=== PATIENT | male | born 1985 | race Caucasian/White ===

== ENCOUNTER 2016-11-01 21:16 | Emergency (ER) | payer OTHER ==
[2016-11-01] MEDS ORDERED: NS 0.9% 1000 ML* 1,000 ML IV ONE (21:28)
[2016-11-01] MEDS ORDERED: LORazepam INJ* 2 MG/ML 1 ML VIAL IV PUSH ONE ×2 (21:38→22:04)
[2016-11-01] MEDS ORDERED: LORazepam INJ* 2 MG/ML 1 ML VIAL ONE (21:40)
[2016-11-01 22:11] LABS: Hematocrit 44 % (42-52); Mean Corpuscular HGB Conc 34 g/dl (31-36); Mean Corpuscular Hemoglobin 30 pg (27-31); Mean Corpuscular Volume 87 fL (80-94); Mean Platelet Volume 9 um3 (7.4-10.4); Red Blood Count 5.06 10^6/ul (4.0-5.4); Red Cell Distribution Width 14 % (10.5-15); White Blood Count 11.2 10^3/ul (3.5-10.8)
[2016-11-01 22:26] LABS: Albumin 4.4 g/dL (3.2-5.2); BUN/Creatinine Ratio 22.4 (8-20); Calcium 9.7 mg/dL (8.6-10.3); EGFR African American 136.1 (>60); EGFR Non-African American 105.8 (>60); Globulin 2.8 g/dL (2-4); Magnesium 1.8 mg/dL (1.9-2.7); Potassium 3.6 mmol/L (3.5-5.0); Total Bilirubin 0.4 mg/dL (0.2-1.0); Total Protein 7.2 g/dL (6.4-8.9)
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
[2016-11-02 00:15] VITALS: BP 131/76
[2016-11-03 12:44] LABS: Lamotrigine <0.2 mcg/mL (2.5 - 15.0)
[2016-11-03 13:01] LABS: Levetiracetam <2.0 mcg/mL
== END 2016-11-02 00:10 | disposition home or self-care (01) ==
LOC: ED 21:16
DX: R56.9 Unspecified convulsions (principal); S01.81XA Laceration without foreign body of other part of head, initial encounter; R68.84 Jaw pain; W19.XXXA Unspecified fall, initial encounter; Y93.9 Activity, unspecified; Y92.9 Unspecified place or not applicable
CPT/HCPCS: 36415; 80053; 80175; 80177; 83735; 85025; 85610; 96374; 96376; 99284; J2060

== ENCOUNTER 2016-11-06 12:48 | Emergency (ER) | payer OTHER ==
[2016-11-06 12:54] VITALS: BP 138/82
[2016-11-06] MEDS ORDERED: oxyCODONE TAB* 5 MG TAB PO ONE (13:13)
[2016-11-06] MEDS ORDERED: HYDROcodone/ACETAMIN 5-325 MG* 1 TAB PO ONE (13:19)
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
== END 2016-11-06 14:30 | disposition home or self-care (01) ==
LOC: UCEAST 12:48
DX: S01.81XD Laceration without foreign body of other part of head, subsequent encounter (principal); X58.XXXD Exposure to other specified factors, subsequent encounter
CPT/HCPCS: 99212; A9270-GY; G0463

== ENCOUNTER 2016-12-11 12:55 | Emergency (ER) | payer OTHER ==
[2016-12-11 14:52] LABS: Hematocrit 48 % (42-52); Hemoglobin 16.5 g/dl (14.0-18.0); Mean Corpuscular HGB Conc 34 g/dl (31-36); Mean Corpuscular Hemoglobin 30 pg (27-31); Mean Corpuscular Volume 88 fL (80-94); Mean Platelet Volume 9 um3 (7.4-10.4); Red Blood Count 5.45 10^6/ul (4.0-5.4); Red Cell Distribution Width 13 % (10.5-15); White Blood Count 8.1 10^3/ul (3.5-10.8)
[2016-12-11 15:08] LABS: ALT 29 U/L (7-52); Albumin 4.8 g/dL (3.2-5.2); Alkaline Phosphatase 43 U/L (34-104); BUN/Creatinine Ratio 19.1 (8-20); Blood Urea Nitrogen 18 mg/dL (6-24); CO2 Carbon Dioxide 28 mmol/L (22-32); Calcium 10.3 mg/dL (8.6-10.3); Chloride 97 mmol/L (101-111); EGFR African American 121.2 (>60); EGFR Non-African American 94.2 (>60); Globulin 3.4 g/dL (2-4); Glucose 100 mg/dL (70-100); Sodium 134 mmol/L (133-145); Total Protein 8.2 g/dL (6.4-8.9)
[2016-12-11 15:11] LABS: Anion Gap 9 mmol/L (2-11)
[2016-12-11] MEDS ORDERED: NS 0.9% 1000 ML* 1,000 ML IV ONE (15:38)
[2016-12-11 15:48] LABS: Magnesium 1.9 mg/dL (1.9-2.7)
[2016-12-11 17:03] LABS: Benzodiazepine Urine Screen Presumptive Positive (None Detect)
[2016-12-11 17:05] LABS: Urine Bacteria Absent (Absent); Urine Bilirubin Negative (Negative); Urine Glucose Negative (Negative); Urine Nitrite Negative (Negative)
[2016-12-11 17:29] VITALS: BP 125/78
--- NOTE | 2016-12-11 21:15 | ED ---
Katelyn Vega Edward, scribed for Shay Mcdonald MD on 12/11/16 at 1439 . Neurological HPI - HPI Summary HPI Summary: 31 y/o male prsents to ED s/p seizure earlier today. Seizure was witnessed - witness states the patient stared off into space, his L hand stiffened up, and then almost fell forward. The patient does not remember the seizure but remembers coming out of it. Associated sx: weakness. PMHx seizures. - History of Current Complaint Chief Complaint: EDSeizure Stated Complaint: VOMITING, Time Seen by Provider: 12/11/16 14:31 Hx Obtained From: Patient Onset/Duration: Sudden Onset Number of Seizures: 1 Pain Intensity: 0 Pain Scale Used: 0-10 Numeric Character: Other: - Seizure - staring off into space, hand stiffened up Seizure Character: Generalized Associated Signs and Symptoms: Positive: Weakness, Seizure - Allergy/Home Medications Allergies/Adverse Reactions: Allergies Allergy/AdvReac Type Severity Reaction Status Date / Time Peanut-containing Drug Allergy Severe Swelling Verified 11/14/16 18:26 Products Peanut Oil Allergy Hives/Diff. Verified 11/06/16 12:54 Breathing/I tching NSAIDs AdvReac Bleeding Verified 11/06/16 12:54 INSENSE Allergy Severe GI Upset Uncoded 11/14/16 18:26 PMH/Surg Hx/FS Hx/Imm Hx Previously Healthy: No Endocrine/Hematology History: Denies: Hx Anticoagulant Therapy, Hx Diabetes, Hx Systemic Lupus Erythematosus, Hx Thyroid Disease, Other Endocrine/Hematological Disorders Cardiovascular History: Denies: Hx Congestive Heart Failure, Hx Deep Vein Thrombosis, Hx Hypertension , Hx Myocardial Infarction, Hx Pacemaker/ICD, Hx Peripheral Vascular Disease, Other Cardiovascular Problems/Disorders Respiratory History: Denies: Hx Asthma, Hx Chronic Obstructive Pulmonary Disease (COPD), Hx Lung Cancer, Other Respiratory Problems/Disorders GI History: Reports: Hx Gastroesophageal Reflux Disease, Hx Gastrointestinal Bleed Denies: Hx Gall Bladder Disease, Hx Ulcer, Hx Urosepsis, Other GI Disorders History: Denies: Hx Kidney Stones, Hx Renal Disease, Other Problems/Disorders Musculoskeletal History: Reports: Hx Back Problems - Fell off a ladder Denies: Hx Arthritis, Hx Osteoporosis, Other Musculoskeletal History Sensory History: Reports: Hx Contacts or Glasses Denies: Hx Cataracts, Hx Glaucoma, Hx Hearing Aid, Other Sensory Impairments Opthamlomology History: Reports: Hx Contacts or Glasses Denies: Hx Cataracts, Hx Glaucoma, Other Sensory Impairments Neurological History: Reports: Hx Headaches, Hx Seizures, Other Neuro Impairments/Disorders - History of head injury. 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 Denies: Hx Dementia Psychiatric History: Reports: Hx Anxiety, Hx Depression, Hx Community Mental Health Tx, Hx of Violent Episodes Against Others Denies: Hx Eating Disorder, Hx Panic Disorder, Hx Inpatient Treatment, Hx Schizophrenia, Hx Bipolar Disorder, Hx Suicide Attempt, Hx Substance Abuse, Other Psychiatric Issues/Disorders - Cancer History Hx Hematologic Symptoms: No Hx Chemotherapy: No - Surgical History Surgery Procedure, Year, and Place: [facility], [facility], [place] Hx Anesthesia Reactions: No - Immunization History Date of Tetanus Vaccine: UP TO DATE Date of Influenza Vaccine: 2012 Infectious Disease History: Yes Infectious Disease History: Denies: Hx Clostridium Difficile, Hx Hepatitis, Hx Human Immunodeficiency Virus (HIV), Hx of Known/Suspected MRSA, Hx Shingles, Hx Tuberculosis, Hx Known/ Suspected VRE, Hx Known/Suspected VRSA, History Other Infectious Disease, Traveled Outside the [place] in Last 30 Days - Family History Known Family History: Positive: Seizure Disorder - Son with febrile sz, brother from sz, Other - brother drowned with a seizure disorder Negative: Cardiac Disease, Hypertension, Diabetes Family History: Depression - Social History Alcohol Use: None Alcohol Amount: 3 months ago quit alcohol Hx Substance Use: No Substance Use Type: Reports: None Substance Use Comment - Amount & Last Used: history at [place]- Tobacco Use: Yes Smoking Status (MU): Current Some Day Smoker Type: Cigarettes, eCigarettes Amount Used/How Often: 2-3cig/day Length of Time of Smoking/Using Tobacco: "A COUPLE YRS" Have You Smoked in the Last Year: Yes Review of Systems Constitutional: Negative Eyes: Negative ENT: Negative Cardiovascular: Negative Respiratory: Negative Gastrointestinal: Negative Genitourinary: Negative Musculoskeletal: Negative Skin: Negative Neurological: Other - Seizure - stared off into space, hand stiffened up, pt almost fell forward, per witness Positive: Weakness Psychological: Normal All Other Systems Reviewed And Are Negative: Yes Physical Exam Triage Information Reviewed: Yes Vital Signs On Initial Exam: Initial Vitals Temp Pulse Resp BP Pulse Ox 98.8 F 131 22 122/84 99 12/11/16 13:34 12/11/16 13:34 12/11/16 13:34 12/11/16 13:34 12/11/16 13:34 Vital Signs Reviewed: Yes Appearance: Positive: Well-Appearing, No Pain Distress Skin: Positive: Warm, Skin Color Reflects Adequate Perfusion, Dry Head/Face: Positive: Normal Head/Face Inspection Eyes: Positive: Normal ENT: Positive: Normal ENT inspection Neck: Positive: Supple, Nontender Respiratory/Lung Sounds: Positive: Clear to Auscultation, Breath Sounds Present Cardiovascular: Positive: RRR Abdomen Description: Positive: Nontender, Soft Bowel Sounds: Positive: Present Musculoskeletal: Positive: Normal Neurological: Positive: Normal Psychiatric: Positive: Normal, Affect/Mood Appropriate - [place] Coma Scale Coma Scale Total: 15 Diagnostics - Vital Signs Vital Signs Temp Pulse Resp BP Pulse Ox 12/11/16 13:41 97.1 F 121 25 122/84 96 12/11/16 13:34 98.8 F 131 22 122/84 99 - Laboratory Lab Results: Lab Results 12/11/16 12/11/16 12/11/16 Range/Units 14:40 14:40 14:40 WBC 8.1 (3.5-10.8) 10^3/ul RBC 5.45 H (4.0-5.4) 10^6/ul Hgb 16.5 (14.0-18.0) g/dl Hct 48 (42-52) % MCV 88 (80-94) fL MCH 30 (27-31) pg MCHC 34 (31-36) g/dl RDW 13 (10.5-15) % Plt Count 226 (150-450) 10^3/ul MPV 9 (7.4-10.4) um3 Neut % (Auto) 80.5 (38-83) % Lymph % (Auto) 10.7 L (25-47) % Todd % (Auto) 8.3 (1-9) % Eos % (Auto) 0.1 (0-6) % Baso % (Auto) 0.4 (0-2) % Absolute Neuts (auto) 6.5 (1.5-7.7) 10^3/ul Absolute Lymphs (auto) 0.9 L (1.0-4.8) 10^3/ul Absolute Monos (auto) 0.7 (0-0.8) 10^3/ul Absolute Eos (auto) 0 (0-0.6) 10^3/ul Absolute Basos (auto) 0 (0-0.2) 10^3/ul Absolute Nucleated RBC 0.04 10^3/ul Nucleated RBC % 0.4 INR (Anticoag Therapy) 1.06 (0.89-1.11) Sodium 134 (133-145) mmol/L Potassium TNP Chloride 97 L (101-111) mmol/L Carbon Dioxide 28 (22-32) mmol/L Anion Gap 9 (2-11) mmol/L BUN 18 (6-24) mg/dL Creatinine 0.94 (0.67-1.17) mg/dL Est GFR ( Amer) 121.2 (>60) Est GFR (Non-Af Amer) 94.2 (>60) BUN/Creatinine Ratio 19.1 (8-20) Glucose 100 (70-100) mg/dL Lactic Acid (0.5-2.0) mmol/L Calcium 10.3 (8.6-10.3) mg/dL Magnesium TNP Total Bilirubin 0.70 (0.2-1.0) mg/dL AST TNP ALT 29 (7-52) U/L Alkaline Phosphatase 43 (34-104) U/L Total Protein 8.2 (6.4-8.9) g/dL Albumin 4.8 (3.2-5.2) g/dL Globulin 3.4 (2-4) g/dL Albumin/Globulin Ratio 1.4 (1-3) Urine Color Urine Appearance Urine pH (5-9) Ur Specific [place] (1.010-1.030) Urine Protein (Negative) Urine Ketones (Negative) Urine Blood (Negative) Urine Nitrate (Negative) Urine Bilirubin (Negative) Urine Urobilinogen (Negative) Ur Leukocyte Esterase (Negative) Urine WBC (Auto) (Absent) Urine RBC (Auto) (Absent) Urine Bacteria (Absent) Hyaline Casts (Absent) Urine Glucose (Negative) Urine Opiates Screen (None Detect) Ur Barbiturates Screen (None Detect) Ur Phencyclidine Scrn (None Detect) Ur Amphetamines Screen (None Detect) U Benzodiazepines Scrn (None Detect) Urine Cocaine Screen (None Detect) U Cannabinoids Screen (None Detect) 07/18/17 07/18/17 07/18/17 Range/Units 14:40 15:29 16:35 WBC (3.5-10.8) 10^3/ul RBC (4.0-5.4) 10^6/ul Hgb (14.0-18.0) g/dl Hct (42-52) % MCV (80-94) fL MCH (27-31) pg MCHC (31-36) g/dl RDW (10.5-15) % Plt Count (150-450) 10^3/ul MPV (7.4-10.4) um3 Neut % (Auto) (38-83) % Lymph % (Auto) (25-47) % Todd % (Auto) (1-9) % Eos % (Auto) (0-6) % Baso % (Auto) (0-2) % Absolute Neuts (auto) (1.5-7.7) 10^3/ul Absolute Lymphs (auto) (1.0-4.8) 10^3/ul Absolute Monos (auto) (0-0.8) 10^3/ul Absolute Eos (auto) (0-0.6) 10^3/ul Absolute Basos (auto) (0-0.2) 10^3/ul Absolute Nucleated RBC 10^3/ul Nucleated RBC % INR (Anticoag Therapy) (0.89-1.11) Sodium (133-145) mmol/L Potassium 3.6 Chloride (101-111) mmol/L Carbon Dioxide (22-32) mmol/L Anion Gap (2-11) mmol/L BUN (6-24) mg/dL Creatinine (0.67-1.17) mg/dL Est GFR ( Amer) (>60) Est GFR (Non-Af Amer) (>60) BUN/Creatinine Ratio (8-20) Glucose (70-100) mg/dL Lactic Acid 1.1 (0.5-2.0) mmol/L Calcium (8.6-10.3) mg/dL Magnesium 1.9 Total Bilirubin (0.2-1.0) mg/dL AST 25 ALT (7-52) U/L Alkaline Phosphatase (34-104) U/L Total Protein (6.4-8.9) g/dL Albumin (3.2-5.2) g/dL Globulin (2-4) g/dL Albumin/Globulin Ratio (1-3) Urine Color [place] Urine Appearance Cloudy Urine pH 7.0 (5-9) Ur Specific [place] 1.033 H (1.010-1.030) Urine Protein 2+(100 mg/dl) H (Negative) Urine Ketones 1+ H (Negative) Urine Blood Negative (Negative) Urine Nitrate Negative (Negative) Urine Bilirubin Negative (Negative) Urine Urobilinogen Negative (Negative) Ur Leukocyte Esterase Trace H (Negative) Urine WBC (Auto) Trace(0-5/hpf) (Absent) Urine RBC (Auto) 2+(6-10/hpf) H (Absent) Urine Bacteria Absent (Absent) Hyaline Casts Present H (Absent) Urine Glucose Negative (Negative) Urine Opiates Screen (None Detect) Ur Barbiturates Screen (None Detect) Ur Phencyclidine Scrn (None Detect) Ur Amphetamines Screen (None Detect) U Benzodiazepines Scrn (None Detect) Urine Cocaine Screen (None Detect) U Cannabinoids Screen (None Detect) 12/11/16 Range/Units 16:35 WBC (3.5-10.8) 10^3/ul RBC (4.0-5.4) 10^6/ul Hgb (14.0-18.0) g/dl Hct (42-52) % MCV (80-94) fL MCH (27-31) pg MCHC (31-36) g/dl RDW (10.5-15) % Plt Count (150-450) 10^3/ul MPV (7.4-10.4) um3 Neut % (Auto) (38-83) % Lymph % (Auto) (25-47) % Todd % (Auto) (1-9) % Eos % (Auto) (0-6) % Baso % (Auto) (0-2) % Absolute Neuts (auto) (1.5-7.7) 10^3/ul Absolute Lymphs (auto) (1.0-4.8) 10^3/ul Absolute Monos (auto) (0-0.8) 10^3/ul Absolute Eos (auto) (0-0.6) 10^3/ul Absolute Basos (auto) (0-0.2) 10^3/ul Absolute Nucleated RBC 10^3/ul Nucleated RBC % INR (Anticoag Therapy) (0.89-1.11) Sodium (133-145) mmol/L Potassium Chloride (101-111) mmol/L Carbon Dioxide (22-32) mmol/L Anion Gap (2-11) mmol/L BUN (6-24) mg/dL Creatinine (0.67-1.17) mg/dL Est GFR ( Amer) (>60) Est GFR (Non-Af Amer) (>60) BUN/Creatinine Ratio (8-20) Glucose (70-100) mg/dL Lactic Acid (0.5-2.0) mmol/L Calcium (8.6-10.3) mg/dL Magnesium Total Bilirubin (0.2-1.0) mg/dL AST ALT (7-52) U/L Alkaline Phosphatase (34-104) U/L Total Protein (6.4-8.9) g/dL Albumin (3.2-5.2) g/dL Globulin (2-4) g/dL Albumin/Globulin Ratio (1-3) Urine Color Urine Appearance Urine pH (5-9) Ur Specific [place] (1.010-1.030) Urine Protein (Negative) Urine Ketones (Negative) Urine Blood (Negative) Urine Nitrate (Negative) Urine Bilirubin (Negative) Urine Urobilinogen (Negative) Ur Leukocyte Esterase (Negative) Urine WBC (Auto) (Absent) Urine RBC (Auto) (Absent) Urine Bacteria (Absent) Hyaline Casts (Absent) Urine Glucose (Negative) Urine Opiates Screen Presumptive positive H (None Detect) Ur Barbiturates Screen None detected (None Detect) Ur Phencyclidine Scrn None detected (None Detect) Ur Amphetamines Screen None detected (None Detect) U Benzodiazepines Scrn Presumptive positive H (None Detect) Urine Cocaine Screen None detected (None Detect) U Cannabinoids Screen None detected (None Detect) Result Diagrams: 12/11/16 14:40 12/11/16 15:29 Lab Statement: Any lab studies that have been ordered have been reviewed, and results considered in the medical decision making process. Course/Dx - Course Course Of Treatment: Mr. Cuenca is reported to have had a breakthru seizure today. He has been vomiting a lot for 3 days without diarrhea. His labs were OK but he came in tachydardic with responded to fluids. He reported that he was off his lamictal for awhile while living in [place]. He has been restarted and is tapering upward. He is taking 50 mgs BID and in 3 days is supposed to go to 100 BID. I spoke with Dr. Castillo who felt that that increase was too aggressive and recommended going to 50 AM and 100 PM for a week first. He agreed. He left abruptly when his fluid was in. Assessment/Plan: SPOKE WITH DR. CASTILLO @ 15:33. - Diagnoses Provider Diagnoses: Breakthrough seizure Discharge - Discharge Plan Condition: Stable Disposition: HOME Patient Education Materials: Nonepileptic Seizures (ED) Referrals: Lisa Castillo MD [Medical Doctor] - 3 Days (PLEASE F/U IN 2-3 DAYS) The documentation as recorded by the Katelyn westbrook Edward accurately reflects the service I personally performed and the decisions made by me, Shay Mcdonald MD.
== END 2016-12-11 18:06 | disposition home or self-care (01) ==
LOC: ED 12:55 → MERGE 12:55 → ED 18:06
DX: R56.9 Unspecified convulsions (principal); R53.1 Weakness; Z72.0 Tobacco use
CPT/HCPCS: 36415; 80053; 80307; 81003; 81015; 83605; 83735; 85025; 85610; 87086; 96360; 99282

== ENCOUNTER 2017-01-18 21:38 | Emergency (ER) | payer OTHER ==
[2017-01-18 23:12] VITALS: BP 125/78
--- NOTE | 2017-01-19 00:06 | ED ---
Oneyda Vega Rebecca, scribed for Carroll Jacob MD on 01/18/17 at 2356 . GI/ HPI - HPI Summary HPI Summary: Pt is a 32 y/o M who presents to ED c/o hematemesis for 2 and a half days. Sx have been intermittent since onset and he repotrs that not every episode of vomiting has blood in it. Sx aggravated by PO intake, alleviated by nothing. Additionally c/o decreased PO intake, slight blood in stool (2 days ago) and R great toe pain and discharge. Pt reports he has had toe pain for 2 weeks and that it is now discharging green and yellow fluid. Has eaten yogurt and cereal today. Last saw PCP 4 months ago and has an appt scheduled in 3 days. - History of Current Complaint Chief Complaint: EDGIBleed Time Seen by Provider: 01/18/17 23:42 Stated Complaint: POSSIBLE INFECTION IN RT BIG TOE/VOMITIMG BLOOD Hx Obtained From: Patient Onset/Duration: Started Days Ago - Hematemesis - 2.5 days ago, Still Present Current Severity: Moderate Pain Intensity: 4 - R great toe Associated Signs and Symptoms: Positive: Hematemesis, Blood w/Stool - 2 days ago Aggravating Factor(s): Food Alleviating Factor(s): Nothing - Allergy/Home Medications Allergies/Adverse Reactions: Allergies Allergy/AdvReac Type Severity Reaction Status Date / Time Peanut-containing Drug Allergy Severe Swelling Verified 01/02/17 13:49 Products Peanut Oil Allergy Hives/Diff. Verified 01/02/17 13:49 Breathing/I tching NSAIDs AdvReac Bleeding Verified 01/02/17 13:49 INSENSE Allergy Severe GI Upset Uncoded 11/14/16 18:26 PMH/Surg Hx/FS Hx/Imm Hx Endocrine/Hematology History: Denies: Hx Anticoagulant Therapy, Hx Diabetes, Hx Systemic Lupus Erythematosus, Hx Thyroid Disease, Other Endocrine/Hematological Disorders Cardiovascular History: Denies: Hx Congestive Heart Failure, Hx Deep Vein Thrombosis, Hx Hypertension , Hx Myocardial Infarction, Hx Pacemaker/ICD, Hx Peripheral Vascular Disease, Other Cardiovascular Problems/Disorders Respiratory History: Denies: Hx Asthma, Hx Chronic Obstructive Pulmonary Disease (COPD), Hx Lung Cancer, Other Respiratory Problems/Disorders GI History: Reports: Hx Gastroesophageal Reflux Disease, Hx Gastrointestinal Bleed Denies: Hx Gall Bladder Disease, Hx Ulcer, Hx Urosepsis, Other GI Disorders History: Denies: Hx Kidney Stones, Hx Renal Disease, Other Problems/Disorders Musculoskeletal History: Reports: Hx Back Problems - Fell off a ladder Denies: Hx Arthritis, Hx Osteoporosis, Other Musculoskeletal History Sensory History: Reports: Hx Contacts or Glasses Denies: Hx Cataracts, Hx Glaucoma, Hx Hearing Aid, Other Sensory Impairments Opthamlomology History: Reports: Hx Contacts or Glasses Denies: Hx Cataracts, Hx Glaucoma, Other Sensory Impairments Neurological History: Reports: Hx Headaches, Hx Seizures, Other Neuro Impairments/Disorders - History of head injury. 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 Denies: Hx Dementia Psychiatric History: Reports: Hx Anxiety, Hx Depression, Hx Community Mental Health Tx, Hx of Violent Episodes Against Others Denies: Hx Eating Disorder, Hx Panic Disorder, Hx Inpatient Treatment, Hx Schizophrenia, Hx Bipolar Disorder, Hx Suicide Attempt, Hx Substance Abuse, Other Psychiatric Issues/Disorders - Cancer History Hx Hematologic Symptoms: No Hx Chemotherapy: No - Surgical History Surgery Procedure, Year, and Place: [facility], [facility], [facility] Anesthesia Reactions: No - Immunization History Date of Tetanus Vaccine: UP TO DATE Date of Influenza Vaccine: 2012 Infectious Disease History: No Infectious Disease History: Denies: Hx Clostridium Difficile, Hx Hepatitis, Hx Human Immunodeficiency Virus (HIV), Hx of Known/Suspected MRSA, Hx Shingles, Hx Tuberculosis, Hx Known/ Suspected VRE, Hx Known/Suspected VRSA, History Other Infectious Disease, Traveled Outside the [place] in Last 30 Days - Family History Known Family History: Positive: Seizure Disorder - Son with febrile sz, brother from sz, Other - brother drowned with a seizure disorder Negative: Cardiac Disease, Hypertension, Diabetes Family History: Depression - Social History Alcohol Use: None Alcohol Amount: 3 months ago quit alcohol Hx Substance Use: No Substance Use Type: Reports: None Substance Use Comment - Amount & Last Used: history at [place]- Tobacco Use: Yes Smoking Status (MU): Current Some Day Smoker Type: Cigarettes, eCigarettes Amount Used/How Often: 2-3cig/day Length of Time of Smoking/Using Tobacco: "A COUPLE YRS" Have You Smoked in the Last Year: Yes Review of Systems Negative: Fever Positive: Other - hematemesis (2.5 days), blood in stool (2 days ago - resolved) , decreased PO intake Positive: Arthralgia - R great toe pain and discharge All Other Systems Reviewed And Are Negative: Yes Physical Exam Triage Information Reviewed: Yes Vital Signs On Initial Exam: Initial Vitals Temp Pulse Resp Pulse Ox 98.1 F 89 16 97 01/18/17 21:42 01/18/17 21:42 01/18/17 21:42 01/18/17 21:42 Vital Signs Reviewed: Yes Appearance: Positive: Well-Appearing, No Pain Distress Skin: Positive: Warm Head/Face: Positive: Normal Head/Face Inspection Eyes: Positive: RUTHIE ENT: Positive: Hearing grossly normal Neck: Positive: Supple Respiratory/Lung Sounds: Positive: Breath Sounds Present Cardiovascular: Positive: RRR Abdomen Description: Positive: Nontender, Soft. Negative: Distended, Guarding Bowel Sounds: Positive: Present Musculoskeletal: Positive: Strength/ROM Intact Neurological: Positive: Alert, Oriented to Person Place, Time Psychiatric: Positive: Affect/Mood Appropriate - [place] Coma Scale Coma Scale Total: 15 Diagnostics - Vital Signs Vital Signs Temp Pulse Resp BP Pulse Ox 01/18/17 23:11 98.9 F 92 125 125/78 100 01/18/17 21:45 98.1 F 68 16 137/94 100 01/18/17 21:42 98.1 F 89 16 97 - Laboratory Lab Statement: Any lab studies that have been ordered have been reviewed, and results considered in the medical decision making process. Re-Evaluation - Re-Evaluation First Eval Comment: pt walked out of ed prior to completion of evaluation GIGU Course/Dx - Course Assessment/Plan: Pt is a 32 y/o M who presents to ED c/o hematemesis for 2 and a half days. Sx have been intermittent since onset and he repotrs that not every episode of vomiting has blood in it. Sx aggravated by PO intake, alleviated by nothing. Additionally c/o decreased PO intake, slight blood in stool (2 days ago) and R great toe pain and discharge. Pt reports he has had toe pain for 2 weeks and that it is now discharging green and yellow fluid. Has eaten yogurt and cereal today. Last saw PCP 4 months ago and has an appt scheduled in 3 days. After MD evaluation prior to any labs being drawn, pt left AMA without signing any forms. - Diagnoses Provider Diagnoses: Abdominal pain Discharge - Discharge Plan Condition: Fair Disposition: AGAINST MEDICAL ADVICE Referrals: Allen Beltrán, [employer] [Primary Care Provider] - The documentation as recorded by the Oneyda westbrook Rebecca accurately reflects the service I personally performed and the decisions made by me, Carroll Jacob MD.
== END 2017-01-19 00:01 | disposition left against medical advice (07) ==
LOC: ED 21:38
DX: K92.0 Hematemesis (principal); Z72.0 Tobacco use; K92.1 Melena; M79.674 Pain in right toe(s); R10.9 Unspecified abdominal pain
CPT/HCPCS: 99282

== ENCOUNTER 2017-02-02 20:49 | Emergency (ER) | payer OTHER ==
[2017-02-02 21:00] VITALS: BP 124/87
[2017-02-02] MEDS ORDERED: Ciprofloxacin 0.3% OPTH.SOL* 2.5 ML BTL RIGHT EYE ONE (22:09)
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
== END 2017-02-02 22:10 | disposition home or self-care (01) ==
LOC: UCEAST 20:49
DX: T65.891A Toxic effect of other specified substances, accidental (unintentional), initial encounter (principal); T26.91XA Corrosion of right eye and adnexa, part unspecified, initial encounter; Y93.9 Activity, unspecified; Y92.9 Unspecified place or not applicable; F41.9 Anxiety disorder, unspecified; Z88.6 Allergy status to analgesic agent; Z72.0 Tobacco use
CPT/HCPCS: 99212; A9270-GY; G0463

== ENCOUNTER 2017-02-13 19:08 | Emergency (ER) | payer OTHER ==
[2017-02-13] MEDS ORDERED: NS 0.9% 1000 ML* 1,000 ML IV ONE (19:58)
[2017-02-13] MEDS ORDERED: Ammonia Inhalant* 1 EA AMP ONE (20:06)
[2017-02-13 20:34] LABS: Hematocrit 40 % (42-52); Hemoglobin 13.5 g/dl (14.0-18.0); Mean Corpuscular HGB Conc 34 g/dl (31-36); Mean Corpuscular Hemoglobin 30 pg (27-31); Mean Corpuscular Volume 87 fL (80-94); Mean Platelet Volume 9 um3 (7.4-10.4); Red Blood Count 4.54 10^6/ul (4.0-5.4); Red Cell Distribution Width 13 % (10.5-15); White Blood Count 8.8 10^3/ul (3.5-10.8)
[2017-02-13 20:50] LABS: ALT 17 U/L (7-52); AST 16 U/L (13-39); Albumin 3.9 g/dL (3.2-5.2); Alkaline Phosphatase 43 U/L (34-104); Anion Gap 3 mmol/L (2-11); BUN/Creatinine Ratio 16.4 (8-20); Blood Urea Nitrogen 12 mg/dL (6-24); CO2 Carbon Dioxide 28 mmol/L (22-32); Calcium 9.3 mg/dL (8.6-10.3); Chloride 104 mmol/L (101-111); Creatine Kinase 129 U/L (10-223); EGFR African American 161.2 (>60); EGFR Non-African American 125.3 (>60); Globulin 2.6 g/dL (2-4); Glucose 88 mg/dL (70-100); Magnesium 1.8 mg/dL (1.9-2.7); Potassium 3.9 mmol/L (3.5-5.0); Sodium 135 mmol/L (133-145); Total Protein 6.5 g/dL (6.4-8.9)
[2017-02-13 21:11] LABS: Acetaminophen < 15 mcg/mL; Alcohol < 10 mg/dL (<10); Salicylate < 2.50 mg/dL (<30)
[2017-02-13 21:21] LABS: TSH (Thyroid Stimulating Horm) 0.31 mcIU/mL (0.34-5.60)
[2017-02-13 23:23] VITALS: BP 126/68
[2017-02-13 23:45] LABS: Urine Bilirubin Negative (Negative); Urine Glucose Negative (Negative); Urine Nitrite Negative (Negative)
[2017-02-13 23:59] LABS: Benzodiazepine Urine Screen Presumptive Positive (None Detect)
--- NOTE | 2017-02-14 07:46 | ED ---
Oneyda Vega Rebecca, scribed for Rory Mann MD on 02/13/17 at 1949 . Neurological HPI - HPI Summary HPI Summary: Pt is a 32 y/o M BIBA who presents to ED s/p suspected seizures. Per EMS, he had 3 seizures at home and had two incidences of seizure-like activity while en route to [facility] ED. 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 All seizures were witnessed and he did not bite his tongue. Pt present as fatigued, which is typical for him s/p seizures. Sx aggravated by nothing, alleviated by spontaneous resolution. Additionally c/o V/D for "a while" as well as depression and SIs for multiple weeks. Denies NGO, fever. States that he recently lost his job and is unable to drive secondary to seizures as well as a recent increase in stress. PMHx seizures for which he is on Lamictol (unsure of dose) and Keppra (500 mg BID). - History of Current Complaint Chief Complaint: EDSeizure Stated Complaint: SEIZURES Time Seen by Provider: 02/13/17 19:38 Hx Obtained From: Patient Onset/Duration: Resolved Timing: Intermittent Episodes Lasting: Current Severity: None Number of Seizures: 5 - Suspected Pain Intensity: 0 Pain Scale Used: 0-10 Numeric Character: Other: - Fatiged Aggravating: Nothing Alleviating: Spontanious Resolution Associated Signs and Symptoms: Positive: Nausea/Vomiting, Diarrhea. Negative: Headache, Fever - Allergy/Home Medications Allergies/Adverse Reactions: Allergies Allergy/AdvReac Type Severity Reaction Status Date / Time Peanut-containing Drug Allergy Severe Swelling Verified 01/02/17 13:49 Products Peanut Oil Allergy Hives/Diff. Verified 01/02/17 13:49 Breathing/I tching NSAIDs AdvReac Bleeding Verified 01/02/17 13:49 PMH/Surg Hx/FS Hx/Imm Hx Endocrine/Hematology History: Denies: Hx Anticoagulant Therapy, Hx Diabetes, Hx Systemic Lupus Erythematosus, Hx Thyroid Disease, Other Endocrine/Hematological Disorders Cardiovascular History: Denies: Hx Congestive Heart Failure, Hx Deep Vein Thrombosis, Hx Hypertension , Hx Myocardial Infarction, Hx Pacemaker/ICD, Hx Peripheral Vascular Disease, Other Cardiovascular Problems/Disorders Respiratory History: Denies: Hx Asthma, Hx Chronic Obstructive Pulmonary Disease (COPD), Hx Lung Cancer, Other Respiratory Problems/Disorders GI History: Reports: Hx Gastroesophageal Reflux Disease, Hx Gastrointestinal Bleed Denies: Hx Gall Bladder Disease, Hx Ulcer, Hx Urosepsis, Other GI Disorders History: Denies: Hx Kidney Stones, Hx Renal Disease, Other Problems/Disorders Musculoskeletal History: Reports: Hx Back Problems - Fell off a ladder Denies: Hx Arthritis, Hx Osteoporosis, Other Musculoskeletal History Sensory History: Reports: Hx Contacts or Glasses Denies: Hx Cataracts, Hx Glaucoma, Hx Hearing Aid, Other Sensory Impairments Opthamlomology History: Reports: Hx Contacts or Glasses Denies: Hx Cataracts, Hx Glaucoma, Other Sensory Impairments Neurological History: Reports: Hx Headaches, Hx Seizures, Other Neuro Impairments/Disorders - History of head injury. 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 Denies: Hx Dementia Psychiatric History: Reports: Hx Anxiety, Hx Depression, Hx Community Mental Health Tx, Hx of Violent Episodes Against Others Denies: Hx Eating Disorder, Hx Panic Disorder, Hx Inpatient Treatment, Hx Schizophrenia, Hx Bipolar Disorder, Hx Suicide Attempt, Hx Substance Abuse, Other Psychiatric Issues/Disorders - Cancer History Hx Hematologic Symptoms: No Hx Chemotherapy: No - Surgical History Surgery Procedure, Year, and Place: [facility], [facility], [facility] Anesthesia Reactions: No - Immunization History Date of Tetanus Vaccine: UP TO DATE Date of Influenza Vaccine: 2012 Infectious Disease History: No Infectious Disease History: Denies: Hx Clostridium Difficile, Hx Hepatitis, Hx Human Immunodeficiency Virus (HIV), Hx of Known/Suspected MRSA, Hx Shingles, Hx Tuberculosis, Hx Known/ Suspected VRE, Hx Known/Suspected VRSA, History Other Infectious Disease, Traveled Outside the [place] in Last 30 Days - Family History Known Family History: Positive: Seizure Disorder - Son with febrile sz, brother from sz, Other - brother drowned with a seizure disorder Negative: Cardiac Disease, Hypertension, Diabetes Family History: Depression - Social History Alcohol Use: None Alcohol Amount: 3 months ago quit alcohol Hx Substance Use: No Substance Use Type: Reports: None Substance Use Comment - Amount & Last Used: history at [facility] Tobacco Use: Yes Smoking Status (MU): Current Some Day Smoker Type: Cigarettes, eCigarettes Amount Used/How Often: 2-3cig/day Length of Time of Smoking/Using Tobacco: "A COUPLE YRS" Have You Smoked in the Last Year: Yes Review of Systems Positive: Fatigue. Negative: Fever Positive: Vomiting, Diarrhea Neurological: Other - s/p 5 suspected seizures Negative: Headache Positive: Depressed, Other - SIs All Other Systems Reviewed And Are Negative: Yes Physical Exam - Summary Physical Exam Summary: The patient is well-nourished in no acute distress and in no acute pain. The skin is warm and dry and skin color reflects adequate perfusion. HEENT: The head is normocephalic and atraumatic. He has no sanabria sign and no raccoon sign. No signs of trauma. The pupils are equal and reactive. The conjunctivae are clear and without drainage. Nares are patent and without drainage. Mouth reveals moist mucous membranes and the throat is without erythema and exudate. The tongue is midline. The external ears are intact. The ear canals are patent and without drainage. The tympanic membranes are intact with no hemotympanum. Neck is supple with full range of motion and non-tender. Respiratory: Chest is non-tender. Lungs are clear to auscultation and breath sounds are symmetrical and equal. Cardiovascular: Hear is regular rate and rhythm. There is no murmur or rub auscultated. There is no peripheral edema and pulses are symmetrical and equal. Abdomen: The abdomen is soft and non-tender. There are normal bowel sounds heard in all four quadrants and there is no organomegaly palpated. Musculoskeletal: There is no back pain noted. Extremities are non-tender with full range of motion. There is good capillary refill. There is no peripheral edema or calf tenderness elicited. Neurological: Patient is lethargic, but is arousable and answers questions appropriately. The patient has symmetrical motor strength in all four extremities. Deep tendon reflexes are symmetrical and equal in all four extremities. Psychiatric: The patient has an appropriate affect and does not exhibit any anxiety or depression. Triage Information Reviewed: Yes Vital Signs On Initial Exam: Initial Vitals Temp Pulse Resp BP Pulse Ox 98.6 F 79 18 106/63 97 02/13/17 19:33 02/13/17 19:33 02/13/17 19:33 02/13/17 19:33 02/13/17 19:33 Vital Signs Reviewed: Yes - [place] Coma Scale Coma Scale Total: 15 Diagnostics - Vital Signs Vital Signs Temp Pulse Resp BP Pulse Ox 02/13/17 19:33 98.6 F 79 18 106/63 97 - Laboratory Lab Results: Lab Results 02/13/17 02/13/17 02/13/17 Range/Units 20:24 20:24 20:24 WBC 8.8 (3.5-10.8) 10^3/ul RBC 4.54 (4.0-5.4) 10^6/ul Hgb 13.5 L (14.0-18.0) g/dl Hct 40 L (42-52) % MCV 87 (80-94) fL MCH 30 (27-31) pg MCHC 34 (31-36) g/dl RDW 13 (10.5-15) % Plt Count 220 (150-450) 10^3/ul MPV 9 (7.4-10.4) um3 Neut % (Auto) 59.2 (38-83) % Lymph % (Auto) 31.3 (25-47) % Sac % (Auto) 7.5 (1-9) % Eos % (Auto) 1.2 (0-6) % Baso % (Auto) 0.8 (0-2) % Absolute Neuts (auto) 5.2 (1.5-7.7) 10^3/ul Absolute Lymphs (auto) 2.8 (1.0-4.8) 10^3/ul Absolute Monos (auto) 0.7 (0-0.8) 10^3/ul Absolute Eos (auto) 0.1 (0-0.6) 10^3/ul Absolute Basos (auto) 0.1 (0-0.2) 10^3/ul Absolute Nucleated RBC 0 10^3/ul Nucleated RBC % 0 INR (Anticoag Therapy) 0.95 (0.89-1.11) Sodium 135 (133-145) mmol/L Potassium 3.9 (3.5-5.0) mmol/L Chloride 104 (101-111) mmol/L Carbon Dioxide 28 (22-32) mmol/L Anion Gap 3 (2-11) mmol/L BUN 12 (6-24) mg/dL Creatinine 0.73 (0.67-1.17) mg/dL Est GFR ( Amer) 161.2 (>60) Est GFR (Non-Af Amer) 125.3 (>60) BUN/Creatinine Ratio 16.4 (8-20) Glucose 88 (70-100) mg/dL Lactic Acid (0.5-2.0) mmol/L Calcium 9.3 (8.6-10.3) mg/dL Magnesium 1.8 L (1.9-2.7) mg/dL Total Bilirubin 0.40 (0.2-1.0) mg/dL AST 16 (13-39) U/L ALT 17 (7-52) U/L Alkaline Phosphatase 43 (34-104) U/L Total Creatine Kinase 129 (10-223) U/L Total Protein 6.5 (6.4-8.9) g/dL Albumin 3.9 (3.2-5.2) g/dL Globulin 2.6 (2-4) g/dL Albumin/Globulin Ratio 1.5 (1-3) TSH 0.31 L (0.34-5.60) mcIU/mL Urine Color Urine Appearance Urine pH (5-9) Ur Specific [place] (1.010-1.030) Urine Protein (Negative) Urine Ketones (Negative) Urine Blood (Negative) Urine Nitrate (Negative) Urine Bilirubin (Negative) Urine Urobilinogen (Negative) Ur Leukocyte Esterase (Negative) Urine Glucose (Negative) Salicylates < 2.50 (<30) mg/dL Urine Opiates Screen (None Detect) Acetaminophen < 15 mcg/mL Ur Barbiturates Screen (None Detect) Ur Phencyclidine Scrn (None Detect) Ur Amphetamines Screen (None Detect) U Benzodiazepines Scrn (None Detect) Urine Cocaine Screen (None Detect) U Cannabinoids Screen (None Detect) Serum Alcohol < 10 (<10) mg/dL 02/13/17 02/13/17 02/13/17 Range/Units 20:24 23:12 23:12 WBC (3.5-10.8) 10^3/ul RBC (4.0-5.4) 10^6/ul Hgb (14.0-18.0) g/dl Hct (42-52) % MCV (80-94) fL MCH (27-31) pg MCHC (31-36) g/dl RDW (10.5-15) % Plt Count (150-450) 10^3/ul MPV (7.4-10.4) um3 Neut % (Auto) (38-83) % Lymph % (Auto) (25-47) % Sac % (Auto) (1-9) % Eos % (Auto) (0-6) % Baso % (Auto) (0-2) % Absolute Neuts (auto) (1.5-7.7) 10^3/ul Absolute Lymphs (auto) (1.0-4.8) 10^3/ul Absolute Monos (auto) (0-0.8) 10^3/ul Absolute Eos (auto) (0-0.6) 10^3/ul Absolute Basos (auto) (0-0.2) 10^3/ul Absolute Nucleated RBC 10^3/ul Nucleated RBC % INR (Anticoag Therapy) (0.89-1.11) Sodium (133-145) mmol/L Potassium (3.5-5.0) mmol/L Chloride (101-111) mmol/L Carbon Dioxide (22-32) mmol/L Anion Gap (2-11) mmol/L BUN (6-24) mg/dL Creatinine (0.67-1.17) mg/dL Est GFR ( Amer) (>60) Est GFR (Non-Af Amer) (>60) BUN/Creatinine Ratio (8-20) Glucose (70-100) mg/dL Lactic Acid 1.0 (0.5-2.0) mmol/L Calcium (8.6-10.3) mg/dL Magnesium (1.9-2.7) mg/dL Total Bilirubin (0.2-1.0) mg/dL AST (13-39) U/L ALT (7-52) U/L Alkaline Phosphatase (34-104) U/L Total Creatine Kinase (10-223) U/L Total Protein (6.4-8.9) g/dL Albumin (3.2-5.2) g/dL Globulin (2-4) g/dL Albumin/Globulin Ratio (1-3) TSH (0.34-5.60) mcIU/mL Urine Color Yellow Urine Appearance Clear Urine pH 7 (5-9) Ur Specific [place] 1.010 (1.010-1.030) Urine Protein Negative (Negative) Urine Ketones Negative (Negative) Urine Blood Negative (Negative) Urine Nitrate Negative (Negative) Urine Bilirubin Negative (Negative) Urine Urobilinogen Negative (Negative) Ur Leukocyte Esterase Negative (Negative) Urine Glucose Negative (Negative) Salicylates (<30) mg/dL Urine Opiates Screen None detected (None Detect) Acetaminophen mcg/mL Ur Barbiturates Screen None detected (None Detect) Ur Phencyclidine Scrn None detected (None Detect) Ur Amphetamines Screen None detected (None Detect) U Benzodiazepines Scrn Presumptive positive H (None Detect) Urine Cocaine Screen None detected (None Detect) U Cannabinoids Screen None detected (None Detect) Serum Alcohol (<10) mg/dL Result Diagrams: 02/13/17 20:24 02/13/17 20:24 Lab Statement: Any lab studies that have been ordered have been reviewed, and results considered in the medical decision making process. - EKG 2014 Cardiac Rate: NL - 72 bpm EKG Rhythm: Sinus Rhythm EKG Interpretation: Normal axis, old inferior wall KS with Q waves in II, III and aVF EKG Comparison: No Significant Change - from EKG on 11/14/2016 Re-Evaluation - Re-Evaluation First Eval Re-Evaluation Time: 23:44 Comment: Pt at this time now denies that he is suicidal. Course/Dx - Course Assessment/Plan: Pt is a 32 y/o M BIBA who presents to ED s/p suspected seizures. Per EMS, he had 3 seizures at home and had two incidences of seizure- like activity while en route to [facility] ED. 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 All seizures were witnessed and he did not bite his tongue. Pt present as fatigued, which is typical for him s/p seizures. Sx alleviated by spontaneous resolution. Additionally c/o V/D for "a while" as well as depression and SIs for multiple weeks. Denies NGO, fever. States that he recently lost his job and is unable to drive secondary to seizures as well as a recent increase in stress. PMHx seizures for which he is on Lamictol (unsure of dose) and Keppra (500 mg BID). In the ED course, pt was given fluids. Medically cleared for MHE at 2320. Upn MHE and consult with Dr. Lange it has been determined that the pt may be D/C to home. He will be D/C with Dx of seizure disorder and depression with a follow up with his PCP. He understands and agrees. - Differential Dx Differential Diagnoses Neuro: Positive: Hypoglycemia, Hypovolemia, Seizure Disorder, Other - depression, suicidal ideation - Diagnoses Provider Diagnoses: Seizure disorder, Depression Discharge - Discharge Plan Condition: Stable Disposition: HOME Patient Education Materials: Recurrent Seizures in Adults (ED) Referrals: Allen Beltrán NP [Primary Care Provider] - 3 Days Additional Instructions: Per completion of a mental health evaluation, you are cleared for release and do not require inpatient psychiatric hospitalization at this time. Please go to nearest emergency room or call 911 if safety concerns arise or condition worsens. Important Phone Numbers: [facility] [phone] Suicide Prevention and Crisis Services [phone] [place] Suicide Prevention Lifeline [phone] ([phone]) [facility] [phone] Alcoholics Anonymous [phone] [facility] [phone] [place] [employer] [phone] The documentation as recorded by the Oneyda westbrook Rebecca accurately reflects the service I personally performed and the decisions made by me, Rory Mann MD.
[2017-02-15 16:11] LABS: Lamotrigine <0.2 mcg/mL (2.5 - 15.0)
[2017-02-15 16:21] LABS: Levetiracetam <2.0 mcg/mL
== END 2017-02-14 01:41 | disposition home or self-care (01) ==
LOC: ED 19:08
DX: G40.909 Epilepsy, unspecified, not intractable, without status epilepticus (principal); R11.2 Nausea with vomiting, unspecified; R19.7 Diarrhea, unspecified; R53.83 Other fatigue; F32.9 Major depressive disorder, single episode, unspecified; Z72.0 Tobacco use
CPT/HCPCS: 36415; 80053; 80175; 80177; 80307; 80320; 80329; 81003; 82550; 83605; 83735; 84443; 85025; 85610; 93005; 96360; 99285; A9270-GY; G0480

== ENCOUNTER 2017-02-26 19:55 | Emergency (ER) | payer OTHER ==
[2017-02-26] MEDS ORDERED: oxyCODONE/Acetamin 5/325 MG* TAB PO ONE (21:25)
--- NOTE | 2017-02-26 21:43 | ED ---
Head Injury - HPI Summary HPI Summary: 32M presents with left sided facial injury. He states he had a seizure that last couple mins at the [facility] today and landed on right side of face. He states this was his normal seizure. The seizure was not witnessed. He states he is trying to get into some snf program but can not have medical problems so he stopped all his medication including pain medication and seizure meds a week ago. He states "he was having seizures with the meds so he can stop them as will still have seizures." He denies any visual changes. He has full ROM of eyes. He is not on blood thinners. patient has seizures but does not want snf system informed that has seizures. - History Of Current Complaint Chief Complaint: EDFacialInjury Stated Complaint: LT CHEEK SWOLLEN Time Seen by Provider: 02/26/17 21:11 Pain Intensity: 7 - Allergies/Home Medications Allergies/Adverse Reactions: Allergies Allergy/AdvReac Type Severity Reaction Status Date / Time Peanut-containing Drug Allergy Severe Swelling Verified 01/02/17 13:49 Products Peanut Oil Allergy Hives/Diff. Verified 01/02/17 13:49 Breathing/I tching NSAIDs AdvReac Bleeding Verified 01/02/17 13:49 PMH/Surg Hx/FS Hx/Imm Hx Endocrine/Hematology History: Denies: Hx Anticoagulant Therapy, Hx Diabetes, Hx Systemic Lupus Erythematosus, Hx Thyroid Disease, Other Endocrine/Hematological Disorders Cardiovascular History: Denies: Hx Congestive Heart Failure, Hx Deep Vein Thrombosis, Hx Hypertension , Hx Myocardial Infarction, Hx Pacemaker/ICD, Hx Peripheral Vascular Disease, Other Cardiovascular Problems/Disorders Respiratory History: Denies: Hx Asthma, Hx Chronic Obstructive Pulmonary Disease (COPD), Hx Lung Cancer, Other Respiratory Problems/Disorders GI History: Reports: Hx Gastroesophageal Reflux Disease, Hx Gastrointestinal Bleed Denies: Hx Gall Bladder Disease, Hx Ulcer, Hx Urosepsis, Other GI Disorders History: Denies: Hx Kidney Stones, Hx Renal Disease, Other Problems/Disorders Musculoskeletal History: Reports: Hx Back Problems - Fell off a ladder Denies: Hx Arthritis, Hx Osteoporosis, Other Musculoskeletal History Sensory History: Reports: Hx Contacts or Glasses Denies: Hx Cataracts, Hx Glaucoma, Hx Hearing Aid, Other Sensory Impairments Opthamlomology History: Reports: Hx Contacts or Glasses Denies: Hx Cataracts, Hx Glaucoma, Other Sensory Impairments Neurological History: Reports: Hx Headaches, Hx Seizures, Other Neuro Impairments/Disorders - History of head injury. 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 Denies: Hx Dementia Psychiatric History: Reports: Hx Anxiety, Hx Depression, Hx Community Mental Health Tx, Hx of Violent Episodes Against Others Denies: Hx Eating Disorder, Hx Panic Disorder, Hx Inpatient Treatment, Hx Schizophrenia, Hx Bipolar Disorder, Hx Suicide Attempt, Hx Substance Abuse, Other Psychiatric Issues/Disorders - Cancer History Hx Hematologic Symptoms: No Hx Chemotherapy: No - Surgical History [facility], [place] Hx Anesthesia Reactions: No - Immunization History Date of Tetanus Vaccine: 2015 Date of Influenza Vaccine: 2012 Immunizations Up to Date: Yes Infectious Disease History: No Infectious Disease History: Denies: Hx Clostridium Difficile, Hx Hepatitis, Hx Human Immunodeficiency Virus (HIV), Hx of Known/Suspected MRSA, Hx Shingles, Hx Tuberculosis, Hx Known/ Suspected VRE, Hx Known/Suspected VRSA, History Other Infectious Disease, Traveled Outside the [place] in Last 30 Days - Family History Known Family History: Positive: Seizure Disorder - Son with febrile sz, brother from sz, Other - brother drowned with a seizure disorder Negative: Cardiac Disease, Hypertension, Diabetes Family History: Depression - Social History Alcohol Use: None Alcohol Amount: 3 months ago quit alcohol Hx Substance Use: No Substance Use Type: Reports: None Substance Use Comment - Amount & Last Used: history at [place]- Tobacco Use: Yes Smoking Status (MU): Never Smoked Tobacco Type: Cigarettes, eCigarettes Amount Used/How Often: 2-3cig/day Length of Time of Smoking/Using Tobacco: "A COUPLE YRS" Have You Smoked in the Last Year: Yes Review of Systems Negative: Fever Positive: Other - left sided facial injury Negative: Chest Pain Negative: Shortness Of Breath All Other Systems Reviewed And Are Negative: Yes Physical Exam Triage Information Reviewed: Yes Vital Signs On Initial Exam: Initial Vitals Temp Pulse Resp BP Pulse Ox 98.3 F 81 20 150/94 98 02/26/17 19:58 02/26/17 19:58 02/26/17 19:58 02/26/17 19:58 02/26/17 19:58 Vital Signs Reviewed: Yes Appearance: Positive: Well-Appearing Skin: Positive: Warm, Dry Head/Face: Positive: Other - contusion to left side of left eye with swelling, no racoon eyes, sanabria sign Eyes: Positive: Normal, EOMI, RUTHIE, Conjunctiva Clear ENT: Positive: Normal ENT inspection, Pharynx normal, TMs normal Respiratory/Lung Sounds: Positive: Clear to Auscultation, Breath Sounds Present Cardiovascular: Positive: Normal, RRR Neurological: Positive: Sensory/Motor Intact, Alert, Oriented to Person Place, Time, CN Intact II-III, Heel to Toe, Finger to Nose - Carmichael Coma Scale Best Eye Response: 4 - Spontaneous Best Motor Response: 6 - Obeys Commands Best Verbal Response: 5 - Oriented Coma Scale Total: 15 Diagnostics - Vital Signs Vital Signs Temp Pulse Resp BP Pulse Ox 02/26/17 21:32 17 02/26/17 19:58 98.3 F 81 20 150/94 98 - Laboratory Lab Statement: Any lab studies that have been ordered have been reviewed, and results considered in the medical decision making process. - CT maxillary facial CT Interpretation: No Acute Changes CT Interpretation Completed By: Radiologist Head Injury Course/Dx Course Of Treatment: 32M presents with left sided facial injury. He states he had a seizure that last couple mins at the [facility] today and landed on right side of face. He states this was his normal seizure. The seizure was not witnessed. He states he is trying to get into some snf program but can not have medical problems so he stopped all his medication including pain medication and seizure meds a week ago. He states "he was having seizures with the meds so he can stop them as will still have seizures." He denies any visual changes. He has full ROM of eyes. He is not on blood thinners. normal neuro exam. has large ecchymosis to left side of face near left eye. EOMI. patient only agreed to maxillary facial CT. patient is A&O and is refusing seizure work up. explained risks that can have repeat seizures and needs to be on medication but patient still refuses. had patient sign out AMA because refused seizure work up and will not take seizure meds as will likely return with repeat seizures. - Diagnoses Differential Diagnosis/HQI/PQRI: Concussion Without LOC, Contusion, Orbital Fracture Provider Diagnoses: Seizure, Facial contusion Discharge - Discharge Plan Condition: Stable Disposition: AGAINST MEDICAL ADVICE Patient Education Materials: Facial Contusion (ED), Epilepsy (ED) Referrals: [facility], [Primary Care Provider] - Additional Instructions: Place ice on area Take Tylenol every 6 hours Follow up with neurology within 3 days Return to ED if develop any new or worsening symptoms
--- NOTE | 2017-02-26 22:18 | RAD ---
indication: Left cheek swelling after hitting face during seizure COMPARISON: Numerous prior CT examinations, most recently dated October 04, [address] scan of the maxillofacial bones was performed without intravenous contrast enhancement. Contiguous axial sections were obtained from the level of the hyoid bone to just above the frontal sinuses. Findings: There is subcutaneous induration overlying the maxilla with mild thickening relative to the contralateral side. Bones: There is no displaced fracture or dislocation. The orbital rim is intact. Bilaterally the nasal bones are intact. The zygomatic arch is intact. The pterygoid plates are intact. Orbits: The globes are round. The optic nerves are symmetric. The extraocular musculature is normal. There is no post septal or intraconal inflammatory change. There is no retrobulbar hematoma. Paranasal Sinuses: There are again seen is inspissated secretions in the left greater than right maxillary sinus and mild mucosal thickening of the anterior ethmoid air cells. Remaining visualized paranasal sinuses are clear. Visualized brain: The limited views of the brain do not demonstrate any acute abnormality or extra-axial hemorrhage. IMPRESSION: 1. Soft tissue swelling overlying the left maxilla without underlying fracture or dislocation. 2. Paranasal sinus mucosal disease similar in appearance to the prior CT of the maxillofacial bones.
[2017-02-26 22:59] VITALS: BP 148/88
== END 2017-02-26 22:59 | disposition left against medical advice (07) ==
LOC: ED 19:55
DX: S00.83XA Contusion of other part of head, initial encounter (principal); R22.0 Localized swelling, mass and lump, head; W19.XXXA Unspecified fall, initial encounter; Y93.9 Activity, unspecified; Y92.149 Unspecified place in prison as the place of occurrence of the external cause
CPT/HCPCS: 70486; 99282; A9270-GY

== ENCOUNTER 2017-09-03 20:58 | Emergency (ER) | payer MEDICAID ==
[2017-09-03] MEDS ORDERED: NS 0.9% 1000 ML* 1,000 ML IV ONE (23:27)
[2017-09-03] MEDS ORDERED: Metoclopramide IV* 5 MG/ML 2 ML VIAL IV SLOW PU ONE (23:28)
[2017-09-03] MEDS ORDERED: Morphine INJ* 4 MG/ML 1 ML SYRINGE (NEW SYRINGE VERSION) IV ONE (23:28)
[2017-09-03] MEDS ORDERED: lamoTRIgine TAB(*) 100 MG PO ONE (23:30)
[2017-09-03] MEDS ORDERED: Morphine VIAL* 4 MG/ML VIAL (1 ml vial) IV ONE ×2 (23:56)
[2017-09-04] MEDS ORDERED: Morphine VIAL* 4 MG/ML VIAL (1 ml vial) IV ONE (00:14)
[2017-09-04 00:16] LABS: ABS Basophils 0.1 10^3/ul (0-0.2); ABS Eosinophils 0.1 10^3/ul (0-0.6); ABS Lymphocytes 2.9 10^3/ul (1.0-4.8); ABS Monocytes 0.6 10^3/ul (0-0.8); ABS Nucleated RBC 0 10^3/ul; Eosinophil % 0.9 % (0-6); Hematocrit 41 % (42-52); Hemoglobin 14.3 g/dl (14.0-18.0); Lymphocyte % 33.8 % (25-47); Mean Corpuscular HGB Conc 35 g/dl (31-36); Mean Corpuscular Hemoglobin 31 pg (27-31); Mean Corpuscular Volume 88 fL (80-94); Mean Platelet Volume 8.3 um3 (7.4-10.4); Nucleated Red Blood Cells % 0; Platelet Count 225 10^3/ul (150-450); Red Blood Count 4.68 10^6/ul (4.0-5.4); Red Cell Distribution Width 13 % (10.5-15); White Blood Count 8.7 10^3/ul (3.5-10.8)
[2017-09-04 00:25] LABS: Urine Appearance Cloudy; Urine Blood 1+ (Negative); Urine Color Yellow; Urine Ketones Trace (Negative); Urine Protein Negative (Negative); Urine Urobilinogen Negative (Negative)
[2017-09-04 00:33] LABS: EGFR Non-African American 140.8 (>60)
[2017-09-04 01:22] VITALS: BP 123/92
--- NOTE | 2017-09-04 04:47 | ED ---
Timi Vega Abhishek, scribed for Bianca Garcia MD on 09/04/17 at 0022 . Neurological HPI - HPI Summary HPI Summary: The pt is a 32 y/o male with a chief complaint of seizure since 2 days ago. PT was presenting to the [facility] by his . The pt has PMHx of seizure since 2012 due to TBI. He reportedly takes seizure medication that was prescribed to him. Pt has been seen in [facility] and [facility] ( Yesterday, 09/02/17). According to the pt, the medication dosage of his seizure medication has not increased. PT also reports of a head injury s/p seizure a half an hour ago which resulted in an abrasion and bleeding. He has contacted his neurologist today and has had multiple episodes of seizures today. The patient rates the pain 0/10 in severity. Symptoms aggravated by nothing. Symptoms alleviated by nothing. - History of Current Complaint Chief Complaint: EDSeizure Stated Complaint: SEIZURE/HEAD INJURY Time Seen by Provider: 09/03/17 23:06 Onset/Duration: Sudden Onset, Started days ago - 2 days ago Timing: Sudden Onset - Intermittent episodes Pain Intensity: 0 Pain Scale Used: 0-10 Numeric Character: Other: - Head Injury with abrasion and bleeding in the back Syncope Context: Unknown - Multiple seizures, Associated Head Trauma - Head injury in the back of the head Aggravating: Nothing Alleviating: Nothing Associated Signs and Symptoms: Positive: Loss of Consciousness, Seizure - Allergy/Home Medications Allergies/Adverse Reactions: Allergies Allergy/AdvReac Type Severity Reaction Status Date / Time NSAIDS (Non-Steroidal Allergy Bleeding Verified 09/03/17 21:12 Anti-Inflamma peanut Allergy Hives Verified 09/03/17 21:12 peanut oil Allergy Hives Verified 09/03/17 21:12 Home Medications: Home Medications lamoTRIgine TAB(*) [Lamictal TAB(*)] 100 mg PO BEDTIME 09/03/17 [History Confirmed 09/03/17] PMH/Surg Hx/FS Hx/Imm Hx Endocrine/Hematology History: Denies: Hx Anticoagulant Therapy, Hx Diabetes, Hx Systemic Lupus Erythematosus, Hx Thyroid Disease, Other Endocrine/Hematological Disorders Cardiovascular History: Denies: Hx Congestive Heart Failure, Hx Deep Vein Thrombosis, Hx Hypertension , Hx Myocardial Infarction, Hx Pacemaker/ICD, Hx Peripheral Vascular Disease, Other Cardiovascular Problems/Disorders Respiratory History: Denies: Hx Asthma, Hx Chronic Obstructive Pulmonary Disease (COPD), Hx Lung Cancer, Other Respiratory Problems/Disorders GI History: Reports: Hx Gastroesophageal Reflux Disease, Hx Gastrointestinal Bleed Denies: Hx Gall Bladder Disease, Hx Ulcer, Hx Urosepsis, Other GI Disorders History: Denies: Hx Kidney Stones, Hx Renal Disease, Other Problems/Disorders Musculoskeletal History: Reports: Hx Back Problems - Fell off a ladder Denies: Hx Arthritis, Hx Osteoporosis, Other Musculoskeletal History Sensory History: Reports: Hx Contacts or Glasses Denies: Hx Cataracts, Hx Glaucoma, Hx Hearing Aid, Other Sensory Impairments Opthamlomology History: Reports: Hx Contacts or Glasses Denies: Hx Cataracts, Hx Glaucoma, Other Sensory Impairments Neurological History: Reports: Hx Headaches, Hx Seizures, Other Neuro Impairments/Disorders - History of head injury. 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 Denies: Hx Dementia Psychiatric History: Reports: Hx Anxiety, Hx Depression, Hx Community Mental Health Tx, Hx of Violent Episodes Against Others Denies: Hx Eating Disorder, Hx Panic Disorder, Hx Inpatient Treatment, Hx Schizophrenia, Hx Bipolar Disorder, Hx Suicide Attempt, Hx Substance Abuse, Other Psychiatric Issues/Disorders - Cancer History Hx Hematologic Symptoms: No Hx Chemotherapy: No - Surgical History Surgery Procedure, Year, and Place: Deviated [facility], 2012, [facility] Hx Anesthesia Reactions: No - Immunization History Date of Tetanus Vaccine: 2015 Date of Influenza Vaccine: 2012 Infectious Disease History: No Infectious Disease History: Denies: Hx Clostridium Difficile, Hx Hepatitis, Hx Human Immunodeficiency Virus (HIV), Hx of Known/Suspected MRSA, Hx Shingles, Hx Tuberculosis, Hx Known/ Suspected VRE, Hx Known/Suspected VRSA, History Other Infectious Disease, Traveled Outside the [place] in Last 30 Days - Family History Known Family History: Positive: Seizure Disorder - Son with febrile sz, brother from sz, Other - brother drowned with a seizure disorder Negative: Cardiac Disease, Hypertension, Diabetes Family History: Depression - Social History Alcohol Use: None Alcohol Amount: 3 months ago quit alcohol Hx Substance Use: No Substance Use Type: Reports: None Substance Use Comment - Amount & Last Used: history at [place]- Hx Tobacco Use: Yes Smoking Status (MU): Light Every Day Tobacco Smoker Type: Cigarettes, eCigarettes Amount Used/How Often: 2-3cig/day Length of Time of Smoking/Using Tobacco: "A COUPLE YRS" Have You Smoked in the Last Year: Yes Review of Systems Constitutional: Negative Eyes: Negative ENT: Negative Cardiovascular: Negative Respiratory: Negative Gastrointestinal: Negative Genitourinary: Negative Musculoskeletal: Negative Positive: Other - Abrasion in the back of the head; bleeding Neurological: Other - Head Injury in the back Positive: Syncope - Seizure Psychological: Normal All Other Systems Reviewed And Are Negative: Yes Physical Exam - Summary Physical Exam Summary: VITAL SIGNS: Reviewed. GENERAL: ~Patient is a well-developed and nourished (MALE) who is lying comfortable in the stretcher. Patient is not in any acute respiratory distress. HEAD AND FACE: Abrasion left parietal occipital EYES: PERRLA, EOMI x 2, No injected conjunctiva, no nystagmus. EARS: Hearing grossly intact. Ear canals and tympanic membranes are within normal limits. MOUTH: Oropharynx within normal limits. NECK: Supple, trachea is midline, no adenopathy, no JVD, no carotid bruit, no c- spine tenderness, neck with full ROM. CHEST: Symmetric, no tenderness at palpation LUNGS: Clear to auscultation bilaterally. No wheezing or crackles. CVS: Regular rate and rhythm, S1 and S2 present, no murmurs or gallops appreciated. ABDOMEN: Soft, non-tender. No signs of distention. No rebound no guarding, and no masses palpated. Bowel sounds are normal. EXTREMITIES: FROM in all major joints, no edema, no cyanosis or clubbing. NEURO: Alert and oriented x 3. No acute neurological deficits. Speech is normal and follows commands. SKIN: Dry and warm Triage Information Reviewed: Yes Vital Signs On Initial Exam: Initial Vitals Temp Pulse Resp BP Pulse Ox 98.4 F 69 16 140/84 99 09/03/17 21:08 09/03/17 21:08 09/03/17 21:08 09/03/17 21:08 09/03/17 21:08 Vital Signs Reviewed: Yes Diagnostics - Vital Signs Vital Signs Temp Pulse Resp BP Pulse Ox 09/03/17 23:00 16 135/64 09/03/17 22:59 125/65 09/03/17 21:08 98.4 F 69 16 140/84 99 - Laboratory Result Diagrams: 09/04/17 00:05 09/04/17 00:05 Lab Statement: Any lab studies that have been ordered have been reviewed, and results considered in the medical decision making process. - Radiology Chest X-ray Radiology Interpretation Completed By: ED Physician - As per ED Physician, the CXR reveals no acute process - CT Brain CT CT Interpretation Completed By: Radiologist - Brain CT reveals no evidence of pathology as per radiologist. The ED Physician has reviewed the radiology report. Course/Dx - Course Course Of Treatment: The pt is a 32 y/o male with a chief complaint of seizure. The pt has had multiple seizures today and have been reoccuring for the past few days (2). PMHx of seizure (due to TBI). We dicussed assessment plan with pt and will increase his Lamictal seizure medication dosage from 100 to 150 and is recommended to take twice a day. We discussed a following up with his neurologist and stated that he should not drive or operate heave machinery. The dx will be seizure and he will be discharged home. - Diagnoses Provider Diagnoses: Seizure Discharge - Sign-Out/Discharge Documenting (check all that apply): Discharge - Home - Discharge Plan Condition: Stable Disposition: HOME Patient Education Materials: Recurrent Seizures in Adults (ED) Referrals: Duran Cerna MD [Primary Care Provider] - () Additional Instructions: Follow up with Neurologist by tomorrow. RETURN TO EMERGENCY DEPARTMENT FOR ANY NEW OR WORSENING SYMPTOMS We recommend that you do not drive or operate heave machinery The documentation as recorded by the Timi westbrook Abhishek accurately reflects the service I personally performed and the decisions made by , Bianca Garcia MD.
--- NOTE | 2017-09-04 07:39 | RAD ---
INDICATION: Seizure COMPARISON: December 18, 2014 TECHNIQUE: A single PA view is submitted. FINDINGS: Bones/Soft Tissues: There are no acute bony findings. Cardiomediastinal: The cardiomediastinal silhouette is normal. Lungs: There are no infiltrates. Pleura: There are no pleural effusions. Other: None IMPRESSION: NORMAL CHEST.
--- NOTE | 2017-09-04 07:40 | RAD ---
INDICATION: Seizure. COMPARISON: Comparison is made with a prior CT of the brain from October 04, 2015. TECHNIQUE: Contiguous axial sections of the brain were obtained from the skull base to the vertex without contrast. FINDINGS: The ventricles, cisterns and sulci are within normal limits. No significant focal abnormality or mass effect is seen. There is no evidence for hemorrhage. No significant focal osseous abnormality is seen. The visualized portion of the paranasal sinuses and mastoid air cells appear clear. IMPRESSION: NO EVIDENCE FOR ACUTE INTRACRANIAL ABNORMALITY.
== END 2017-09-04 01:27 | disposition home or self-care (01) ==
LOC: ED 20:58
DX: R56.9 Unspecified convulsions (principal); F17.210 Nicotine dependence, cigarettes, uncomplicated
CPT/HCPCS: 36415; 70450; 71045; 80053; 80307; 81003; 81015; 83735; 85025; 87086; 96374; 99284; A9270-GY; J2270; J2765

== ENCOUNTER 2017-10-07 11:57 | Emergency (ER) | payer MEDICAID ==
[2017-10-07 12:36] LABS: ABS Basophils 0 10^3/ul (0-0.2); ABS Eosinophils 0.1 10^3/ul (0-0.6); ABS Lymphocytes 2.5 10^3/ul (1.0-4.8); ABS Monocytes 0.4 10^3/ul (0-0.8); ABS Neutrophils 4.1 10^3/ul (1.5-7.7); ABS Nucleated RBC 0 10^3/ul; Eosinophil % 1.2 % (0-6); Hematocrit 42 % (42-52); Hemoglobin 14.6 g/dl (14.0-18.0); Lymphocyte % 35.2 % (25-47); Mean Corpuscular HGB Conc 35 g/dl (31-36); Mean Corpuscular Hemoglobin 31 pg (27-31); Mean Corpuscular Volume 88 fL (80-94); Mean Platelet Volume 8.9 um3 (7.4-10.4); Nucleated Red Blood Cells % 0; Platelet Count 195 10^3/ul (150-450); Red Blood Count 4.78 10^6/ul (4.0-5.4); Red Cell Distribution Width 13 % (10.5-15)
[2017-10-07 12:52] LABS: EGFR Non-African American 138.4 (>60)
--- NOTE | 2017-10-07 12:58 | RAD ---
HISTORY: Seizure disorder, headache COMPARISONS: September 03, 2017 TECHNIQUE: Multiple contiguous axial CT scans were obtained of the head without intravenous contrast. FINDINGS: HEMORRHAGE/INFARCT: There is no hemorrhage or acute infarct. MASSES/SHIFT: There is no mass or shift. EXTRA-AXIAL SPACES: There are no extra-axial fluid collections. SULCI AND VENTRICLES: The sulci and ventricles are normal in size and position for the patient's stated age. CEREBRUM: There are no focal parenchymal abnormalities. BRAINSTEM: There are no focal parenchymal abnormalities. CEREBELLUM: There are no focal parenchymal abnormalities. VESSELS: The vessels are grossly normal. PARANASAL SINUSES: There is a mucous retention cyst of the left maxillary sinus. ORBITS: The orbits are unremarkable. BONES AND SOFT TISSUE: No bone or soft tissue abnormalities are noted. OTHER: None IMPRESSION: NO ACUTE INTRACRANIAL PATHOLOGY.
[2017-10-07] MEDS ORDERED: diPHENhydraMINE IV* 50 MG/ML 1 ml VIAL (BENADRYL) IV ONE (12:59)
[2017-10-07] MEDS ORDERED: Metoclopramide IV* 5 MG/ML 2 ML VIAL IV SLOW PU ONE (12:59)
[2017-10-07] MEDS ORDERED: NS 0.9% 1000 ML* 2,000 ML IV ONE (12:59)
[2017-10-07 13:46] LABS: Urine Appearance Cloudy; Urine Blood Negative (Negative); Urine Color Yellow; Urine Ketones Negative (Negative); Urine Protein Negative (Negative); Urine Specific Gravity 1.016 (1.010-1.030); Urine Urobilinogen Negative (Negative)
[2017-10-07 14:09] LABS: INR 0.94 (0.77-1.02)
[2017-10-07] MEDS ORDERED: oxyCODONE/Acetamin 5/325 MG* TAB PO ONE ×3 (15:51→20:21)
[2017-10-07] MEDS ORDERED: Omeprazole CAP* 20 MG PO ONE (15:51)
--- NOTE | 2017-10-07 20:21 | ED ---
Julia Vega Thomas, scribed for Kyaw Wells MD on 10/07/17 at 1256 . Complex/Multi-Sys Presentation - HPI Summary HPI Summary: The patient is a 32 year old male complaining of suicidal ideation due to distress concerning his seizures and intractable headaches. He complains of headaches that have worsened in the last four days. The headaches are concentrated behind both his eyes. He has been treating his headaches with acetaminophen and oxycodone. He had a seizure two days ago in which he fell and struck the left side of his face. - History Of Current Complaint Chief Complaint: [facility] Time Seen by Provider: 10/07/17 12:15 Hx Obtained From: Patient Onset/Duration: Lasting Weeks, Still Present, Worse Since - 4 days ago Timing: Constant Severity Currently: Moderate Severity Initially: Moderate Location: Pain At: - behind eyes Aggravating Factor(s): None Alleviating Factor(s): None Associated Signs And Symptoms: Positive: Other - Headache, seizure, suicidal ideation - Allergies/Home Medications Allergies/Adverse Reactions: Allergies Allergy/AdvReac Type Severity Reaction Status Date / Time NSAIDS (Non-Steroidal Allergy Bleeding Verified 10/07/17 12:10 Anti-Inflamma peanut Allergy Hives Verified 10/07/17 12:10 peanut oil Allergy Hives Verified 10/07/17 12:10 Home Medications: Home Medications Fluticasone NASAL SPRAY 50MCG* [Flonase NASAL SPRAY 50MCG*] 2 spray BOTH NARES DAILY PRN 10/07/17 [History Confirmed 10/07/17] Ibuprofen TAB* [Motrin TAB* 600 MG] 600 mg PO Q8H PRN 10/07/17 [History Confirmed 10/07/17] Omeprazole CAP* [Prilosec CAP* 20 MG] 20 mg PO DAILY PRN 10/07/17 [History Confirmed 10/07/17] QUEtiapine TAB* [Seroquel 100 MG *] 100 mg PO BEDTIME 10/07/17 [History Confirmed 10/07/17] hydrOXYzine HCL TAB* [Atarax 10 MG TAB*] 10 mg PO BID 10/07/17 [History Confirmed 10/07/17] tiZANidine TAB* [Zanaflex TAB*] 10 mg PO TID PRN 10/07/17 [History Confirmed ] PMH/Surg Hx/FS Hx/Imm Hx Endocrine/Hematology History: Denies: Hx Anticoagulant Therapy, Hx Diabetes, Hx Systemic Lupus Erythematosus, Hx Thyroid Disease, Other Endocrine/Hematological Disorders Cardiovascular History: Denies: Hx Congestive Heart Failure, Hx Deep Vein Thrombosis, Hx Hypertension , Hx Myocardial Infarction, Hx Pacemaker/ICD, Hx Peripheral Vascular Disease, Other Cardiovascular Problems/Disorders Respiratory History: Denies: Hx Asthma, Hx Chronic Obstructive Pulmonary Disease (COPD), Hx Lung Cancer, Other Respiratory Problems/Disorders GI History: Reports: Hx Gastroesophageal Reflux Disease, Hx Gastrointestinal Bleed Denies: Hx Gall Bladder Disease, Hx Ulcer, Hx Urosepsis, Other GI Disorders History: Denies: Hx Kidney Stones, Hx Renal Disease, Other Problems/Disorders Musculoskeletal History: Reports: Hx Back Problems - Fell off a ladder Denies: Hx Arthritis, Hx Osteoporosis, Other Musculoskeletal History Sensory History: Reports: Hx Contacts or Glasses Denies: Hx Cataracts, Hx Glaucoma, Hx Hearing Aid, Other Sensory Impairments Opthamlomology History: Reports: Hx Contacts or Glasses Denies: Hx Cataracts, Hx Glaucoma, Other Sensory Impairments Neurological History: Reports: Hx Headaches, Hx Seizures, Other Neuro Impairments/Disorders - History of head injury. 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 Denies: Hx Dementia Psychiatric History: Reports: Hx Anxiety, Hx Depression, Hx Community Mental Health Tx, Hx of Violent Episodes Against Others Denies: Hx Eating Disorder, Hx Panic Disorder, Hx Inpatient Treatment, Hx Schizophrenia, Hx Bipolar Disorder, Hx Suicide Attempt, Hx Substance Abuse, Other Psychiatric Issues/Disorders - Cancer History Hx Hematologic Symptoms: No Hx Chemotherapy: No - Surgical History Surgery Procedure, Year, and Place: Deviated Septum, 2012, [facility] Hx Anesthesia Reactions: No - Immunization History Date of Tetanus Vaccine: 2016 Date of Influenza Vaccine: 2013 Infectious Disease History: No Infectious Disease History: Denies: Hx Clostridium Difficile, Hx Hepatitis, Hx Human Immunodeficiency Virus (HIV), Hx of Known/Suspected MRSA, Hx Shingles, Hx Tuberculosis, Hx Known/ Suspected VRE, Hx Known/Suspected VRSA, History Other Infectious Disease, Traveled Outside the [place] in Last 30 Days - Family History Known Family History: Positive: Seizure Disorder - Son with febrile sz, brother from sz, Other - brother drowned with a seizure disorder Negative: Cardiac Disease, Hypertension, Diabetes Family History: Depression - Social History Alcohol Use: None Alcohol Amount: 3 months ago quit alcohol Hx Substance Use: No Substance Use Type: Reports: None Substance Use Comment - Amount & Last Used: history at [facility] Tobacco Use: Yes Smoking Status (MU): Light Every Day Tobacco Smoker Type: Cigarettes, eCigarettes Amount Used/How Often: 2-3cig/day Length of Time of Smoking/Using Tobacco: "A COUPLE YRS" Have You Smoked in the Last Year: Yes Review of Systems Negative: Fever Neurological: Other - Seizure Positive: Headache Positive: Other - SI All Other Systems Reviewed And Are Negative: Yes Physical Exam - Summary Physical Exam Summary: General: well-appearing, no pain distress Skin: warm, color reflects adequate perfusion, dry Head: normal Eyes: EOMI, RUTHIE ENT: normal Neck: supple, nontender Respiratory: CTA, breath sounds present Cardiovascular: RRR Abdomen: soft, nontender Bowel: present Musculoskeletal: normal, strength/ROM intact Neurological: normal, sensory/motor intact, A&O x3 Psychological: affect/mood appropriate Triage Information Reviewed: Yes Vital Signs On Initial Exam: Initial Vitals Temp Pulse Resp BP Pulse Ox 98.4 F 97 28 145/77 98 10/07/17 12:05 10/07/17 12:05 10/07/17 12:05 10/07/17 12:05 10/07/17 12:05 Vital Signs Reviewed: Yes Diagnostics - Vital Signs Vital Signs Temp Pulse Resp BP Pulse Ox 10/07/17 12:05 98.4 F 97 28 145/77 98 - Laboratory Lab Results: Lab Results 10/07/17 10/07/17 Range/Units 12:25 12:25 WBC 7.0 (3.5-10.8) 10^3/ul RBC 4.78 (4.0-5.4) 10^6/ul Hgb 14.6 (14.0-18.0) g/dl Hct 42 (42-52) % MCV 88 (80-94) fL MCH 31 (27-31) pg MCHC 35 (31-36) g/dl RDW 13 (10.5-15) % Plt Count 195 (150-450) 10^3/ul MPV 8.9 (7.4-10.4) um3 Neut % (Auto) 57.6 (38-83) % Lymph % (Auto) 35.2 (25-47) % [place] % (Auto) 5.4 (0-7) % Eos % (Auto) 1.2 (0-6) % Baso % (Auto) 0.6 (0-2) % Absolute Neuts (auto) 4.1 (1.5-7.7) 10^3/ul Absolute Lymphs (auto) 2.5 (1.0-4.8) 10^3/ul Absolute Monos (auto) 0.4 (0-0.8) 10^3/ul Absolute Eos (auto) 0.1 (0-0.6) 10^3/ul Absolute Basos (auto) 0 (0-0.2) 10^3/ul Absolute Nucleated RBC 0 10^3/ul Nucleated RBC % 0 Sodium 140 (139-145) mmol/L Potassium 4.4 (3.5-5.0) mmol/L Chloride 107 (101-111) mmol/L Carbon Dioxide 30 (22-32) mmol/L Anion Gap 3 (2-11) mmol/L BUN 13 (6-24) mg/dL Creatinine 0.67 (0.67-1.17) mg/dL Est GFR ( Amer) 177.9 (>60) Est GFR (Non-Af Amer) 138.4 (>60) BUN/Creatinine Ratio 19.4 (8-20) Glucose 97 (70-100) mg/dL Calcium 9.8 (8.6-10.3) mg/dL Total Bilirubin 0.30 (0.2-1.0) mg/dL AST 12 L (13-39) U/L ALT 12 (7-52) U/L Alkaline Phosphatase 55 (34-104) U/L C-Reactive Protein 1.94 (< 5.00) mg/L Total Protein 7.0 (6.4-8.9) g/dL Albumin 4.3 (3.2-5.2) g/dL Globulin 2.7 (2-4) g/dL Albumin/Globulin Ratio 1.6 (1-3) TSH Pending Salicylates Pending Acetaminophen Pending Serum Alcohol Pending Result Diagrams: 10/07/17 12:25 10/07/17 12:25 Lab Statement: Any lab studies that have been ordered have been reviewed, and results considered in the medical decision making process. - CT CT Brain CT Interpretation: No Acute Changes - Impression: No acute intracranial pathology. Dr. Wells has reviewed this report. CT Interpretation Completed By: Radiologist Complex Multi-Symp Course/Dx Course Of Treatment: Medications reviewed. Allergies noted. BP noted and patient urged to follow up with primary care. DR VICTOR, NEUROLOGY, SAW THE PATINET IN THE ED. HE RECOMMENDED INCREASING THE LAMICTAL DOSE TO 150MG IN THE AM AND 200MG IN THE PM. HE WILL DISCUSS THIS WITH DR CASTILLO FOR FOLLOW UP. AFTER THE NEUROLOGY CONSULT, THE PATIENT DENIES SI OR THE DESIRE TO HURT HIMSELF AND STATES HE WAS JUST FRUSTRATED WITH NOT HAVING NEUROLOGY F/U WHICH HE NOW HAS. BASED ON THIS, I CANCELLED THE MHE. F/U NEUROLOGY; RETURN IF WORSE. - Diagnoses Provider Diagnoses: HTN (hypertension), Epilepsy, Low back pain Discharge - Sign-Out/Discharge Documenting (check all that apply): Discharge/Admit/Transfer - Discharge Plan Condition: Stable Disposition: HOME Patient Education Materials: Epilepsy (ED), Back Pain (ED) Referrals: Duran Cerna MD [Primary Care Provider] - Additional Instructions: FOLLOW UP WITH NEUROLOGY, DR CASTILLO. DR VICTOR, NEUROLOGY, SAW YOU IN THE EMERGENCY DEPARTMENT. HE RECOMMENDS TO INCREASE YOUR LAMICTAL DOSE TO 150MG IN THE MORNING AND 200MG IN THE EVENING. RETURN TO THE EMERGENCY DEPARTMENT FOR ANY WORSENING OF YOUR CONDITION; PAIN, RECURRENT SEIZURES, YOU FEEL LIKE HURTING YOURSELF OR QUESTIONS OR CONCERNS. - Billing Disposition and Condition Condition: STABLE Disposition: HOME The documentation as recorded by the Julia westbrook Thomas accurately reflects the service I personally performed and the decisions made by me, Kyaw Wells MD.
[2017-10-07 20:39] VITALS: BP 135/69
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
== END 2017-10-07 20:40 | disposition home or self-care (01) ==
LOC: ED 11:57
DX: I10 Essential (primary) hypertension (principal); G40.909 Epilepsy, unspecified, not intractable, without status epilepticus; R51 Headache; R45.851 Suicidal ideations; F17.210 Nicotine dependence, cigarettes, uncomplicated; M54.5 Low back pain
CPT/HCPCS: 36415; 70450; 80053; 80175; 80307; 80320; 80329; 81003; 84443; 85025; 85610; 86140; 96374; 96375; 99284; A9270-GY; G0480; J1200; J2765

== ENCOUNTER 2017-10-17 22:41 | Emergency (ER) | payer MEDICAID ==
[2017-10-17] MEDS ORDERED: Lidocaine/Epineph/Tetraca SOL* (LET solution) 4 ML BTL TOPICAL ONE (23:34)
[2017-10-17 23:54] LABS: ABS Basophils 0.1 10^3/ul (0-0.2); ABS Eosinophils 0.2 10^3/ul (0-0.6); ABS Lymphocytes 3.6 10^3/ul (1.0-4.8); ABS Monocytes 0.7 10^3/ul (0-0.8); ABS Neutrophils 5.2 10^3/ul (1.5-7.7); ABS Nucleated RBC 0 10^3/ul; Eosinophil % 2.2 % (0-6); Hematocrit 40 % (42-52); Hemoglobin 13.8 g/dl (14.0-18.0); Lymphocyte % 36.5 % (25-47); Mean Corpuscular HGB Conc 35 g/dl (31-36); Mean Corpuscular Hemoglobin 31 pg (27-31); Mean Corpuscular Volume 88 fL (80-94); Mean Platelet Volume 8.9 um3 (7.4-10.4); Nucleated Red Blood Cells % 0.1; Platelet Count 198 10^3/ul (150-450); Red Cell Distribution Width 13 % (10.5-15); White Blood Count 9.8 10^3/ul (3.5-10.8)
[2017-10-18 00:02] LABS: INR 0.87 (0.77-1.02)
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
[2017-10-18 00:21] LABS: EGFR Non-African American 112.8 (>60)
[2017-10-18 01:54] VITALS: BP 127/86
== END 2017-10-18 01:52 | disposition home or self-care (01) ==
LOC: ED 22:41
DX: R55 Syncope and collapse (principal); S01.81XA Laceration without foreign body of other part of head, initial encounter; W19.XXXA Unspecified fall, initial encounter; Y93.E1 Activity, personal bathing and showering; Y92.9 Unspecified place or not applicable; G40.909 Epilepsy, unspecified, not intractable, without status epilepticus; S06.9X0S Unspecified intracranial injury without loss of consciousness, sequela; V89.2XXS Person injured in unspecified motor-vehicle accident, traffic, sequela; F17.290 Nicotine dependence, other tobacco product, uncomplicated; F17.210 Nicotine dependence, cigarettes, uncomplicated; Z88.6 Allergy status to analgesic agent
CPT/HCPCS: 36415; 80053; 80175; 80320; 83605; 83735; 84443; 84484; 85025; 85379; 85610; 85730; 93005; 99283; G0480

== ENCOUNTER 2017-11-03 20:19 | Emergency (ER) | payer MEDICAID ==
[2017-11-03 20:40] VITALS: BP 130/84
[2017-11-03] MEDS ORDERED: HYDROcodone/ACETAMIN 5-325 MG* 1 TAB PO ONE (21:03)
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
== END 2017-11-03 21:20 | disposition home or self-care (01) ==
LOC: UCEAST 20:19
DX: T22.112A Burn of first degree of left forearm, initial encounter (principal); X13.1XXA Other contact with steam and other hot vapors, initial encounter; Y93.G3 Activity, cooking and baking; Y92.000 Kitchen of unspecified non-institutional (private) residence as the place of occurrence of the external cause; K21.9 Gastro-esophageal reflux disease without esophagitis; R51 Headache; R56.9 Unspecified convulsions; Z87.820 Personal history of traumatic brain injury; F41.9 Anxiety disorder, unspecified; F32.9 Major depressive disorder, single episode, unspecified; Z88.6 Allergy status to analgesic agent; F17.210 Nicotine dependence, cigarettes, uncomplicated; Z82.0 Family history of epilepsy and other diseases of the nervous system; Z81.8 Family history of other mental and behavioral disorders
CPT/HCPCS: 99202; G0463

== ENCOUNTER 2017-11-05 19:31 | Emergency (ER) | payer MEDICAID ==
[2017-11-05 19:56] VITALS: BP 157/85
--- NOTE | 2017-11-05 20:08 | UC ---
Hand/Wrist HPI - HPI Summary HPI Summary: 32 yo male presents with right hand pain. He tells me that 2 days ago he was helping a friend move and accidentally slammed his hand between a cough and the doorframe. Had immediate pain and swelling. Yesterday seemed to improve, but after work yesterday his pain significantly increased. Today was severe pain and he "doesn't know how he made it through the day". Swelling has increased again. He also mentions that Dr. Cramer wanted to do surgery on a tendon in this hand, but pt admittedly put this off because he was starting a new job and couldn't take time off work. Denies numbness or tingling. Has been taking tylenol for pain and applying ice with no relief. - History Of Current Complaint Chief Complaint: UCUpperExtremity Stated Complaint: R HAND INJURY Time Seen by Provider: 11/05/17 19:48 Hx Obtained From: Patient Onset/Duration: Sudden Onset Severity Initially: Severe Severity Currently: Severe Pain Intensity: 10 Pain Scale Used: 0-10 Numeric - Allergies/Home Medications Allergies/Adverse Reactions: Allergies Allergy/AdvReac Type Severity Reaction Status Date / Time NSAIDS (Non-Steroidal Allergy Bleeding Verified 11/05/17 19:57 Anti-Inflamma peanut Allergy Hives Verified 11/05/17 19:57 peanut oil Allergy Hives Verified 11/05/17 19:57 Home Medications: Home Medications Aspirin/Acetaminophen/Caffeine [Excedrin Extra Strength Caplet] 2 tab PO Q6HR PRN 11/05/17 [History Confirmed 11/05/17] PMH/Surg Hx/FS Hx/Imm Hx GI/ History: Gastroesophageal Reflux Psychological History: Bipolar Disorder Other History Of: Negative For: HIV, Hepatitis B, Hepatitis C, Anticoagulant Therapy - Surgical History Surgical History: Yes Surgery Procedure, [facility] and [facility], [place] - Family History Known Family History: Positive: Seizure Disorder - Son with febrile sz, brother from sz, Other - brother drowned with a seizure disorder Negative: Cardiac Disease, Hypertension, Diabetes Family History: Depression - Social History Occupation: Employed Full-time Lives: With Family Alcohol Use: None Alcohol Amount: 3 months ago quit alcohol Substance Use Type: None Substance Use Comment - Amount & Last Used: history at [place]- Smoking Status (MU): Light Every Day Tobacco Smoker Type: eCigarettes Amount Used/How Often: 2-3cig/day Length of Time of Smoking/Using Tobacco: "A COUPLE YRS" Have You Smoked in the Last Year: Yes When Did the Patient Quit Smoking/Using Tobacco: quit regular cigarettes 4 years ago Household Exposure Type: Cigarettes - Immunization History Most Recent Influenza Vaccination: utd Most Recent Tetanus Shot: 2013 Most Recent Pneumonia Vaccination: Never Review of Systems Constitutional: Negative Skin: Negative Respiratory: Negative Cardiovascular: Negative Neurovascular: Negative Musculoskeletal: Edema - Right hand, Other: - Right hand pain Neurological: Negative Psychological: Negative All Other Systems Reviewed And Are Negative: Yes Physical Exam - Summary Physical Exam Summary: GENERAL: NAD. WDWN. No pain distress. SKIN: No rashes, sores, lesions, or open wounds. NECK: Supple. Nontender. No lymphadenopathy. CHEST: No accessory muscle use. Breathing comfortably and in no distress. CV: RRR. Without m/r/g. Pulses intact radial and ulnar. MSK: Right dorsal hand: Severe TTP over 3rd and 4th MCP with mild edema. FROM, but with pain during extension. 5th digit held in extension due to previous tendon issue NEURO: Alert. Sensations intact hand and all fingers. PSYCH: Age appropriate behavior. Triage Information Reviewed: Yes Vital Signs: Initial Vital Signs Temp 99.3 F 11/05/17 19:54 Pulse 80 11/05/17 19:54 Resp 16 11/05/17 19:54 BP 157/85 11/05/17 19:54 Pulse Ox 100 11/05/17 19:54 Hand/Wrist Course/Dx - Course Course Of Treatment: XR: IMPRESSION: 1. LIMITED STUDY, NO FRACTURE IS SEEN. 2. INCREASED SPACE BETWEEN THE FOURTH AND FIFTH DIGITS POSSIBLY RELATED TO POSITIONING. CANNOT EXCLUDE SOFT TISSUE INJURY. RECOMMEND CLINICAL CORRELATION. Suspect hand contusion. F/u with Dr. Cramer of Orthopedics as he has seen you regarding this hand in the recent past. iSTOP checked Reference #: [id number] and ok. - Differential Dx/Diagnosis Provider Diagnoses: Right hand contusion Discharge - Sign-Out/Discharge Documenting (check all that apply): Discharge/Admit/Transfer - Discharge Plan Condition: Stable Disposition: HOME Prescriptions: oxyCODONE/Acetamin 5/325 MG* [Percocet 5/325 TAB*] 1 tab PO TID PRN #9 tab MDD 3 PRN Reason: Pain Forms: *Work Release Referrals: Duran Cerna MD [Primary Care Provider] - Hao Cramer MD [Medical Doctor] - As Soon As Possible Additional Instructions: If you develop a fever, shortness of breath, chest pain, new or worsening symptoms - please call your PCP or go to the ED. Your blood pressure was high at todays visit. Please see your primary provider within 4 weeks for recheck and re-evaluation. 1) Rest, Ice, and elevate your hand as much as possible 2) Please call Dr. Cramer to schedule an appointment as soon as possible for your hand - Billing Disposition and Condition Condition: STABLE Disposition: Home
--- NOTE | 2017-11-05 20:21 | RAD ---
INDICATION: Right hand injury. TECHNIQUE: 4 views of the right hand were obtained. The fingers are flexed in all views limiting the study. FINDINGS: There is increased space between the fourth and fifth digits on multiple views possibly due to positioning or pain although can't exclude soft tissue injury. No fracture is seen. IMPRESSION: 1. LIMITED STUDY, NO FRACTURE IS SEEN. 2. INCREASED SPACE BETWEEN THE FOURTH AND FIFTH DIGITS POSSIBLY RELATED TO POSITIONING CANNOT EXCLUDE SOFT TISSUE INJURY. RECOMMEND CLINICAL CORRELATION.
--- NOTE | 2017-11-06 09:54 | UC ---
- Progress Note Progress Note: RECEIVED A CALL FROM [facility] STATING THEY FILLED A PRESCRIPTION FOR OXYCODONE/APAP 7.5/325 #120 TABS JUST YESTERDAY FOR THIS PATIENT. THIS WAS CONFIRMED ON REVIEW OF [facility] (#: [id number]). ON REVIEW OF THE PROGRESS NOTE FROM YESTERDAY'S VISIT IT DOES NOT APPEAR THAT THE PATIENT DISCLOSED HE WAS ON CHRONIC PAIN MEDICATION AND SO RECEIVED A PRESCRIPTION FOR OXYCODONE/APAP 5/325 FROM [place]. I ADVISED THE PHARMACIST NOT TO FILL THIS ERX. - TOYIN FRYE MD Discharge - Sign-Out/Discharge Documenting (check all that apply): Discharge/Admit/Transfer - Discharge Plan Condition: Stable Disposition: HOME Prescriptions: oxyCODONE/Acetamin 5/325 MG* [Percocet 5/325 TAB*] 1 tab PO TID PRN #9 tab MDD 3 PRN Reason: Pain Forms: *Work Release Referrals: Hao Cramer MD [Medical Doctor] - As Soon As Possible Duran Cerna MD [Primary Care Provider] - Additional Instructions: If you develop a fever, shortness of breath, chest pain, new or worsening symptoms - please call your PCP or go to the ED. Your blood pressure was high at todays visit. Please see your primary provider within 4 weeks for recheck and re-evaluation. 1) Rest, Ice, and elevate your hand as much as possible 2) Please call Dr. Cramer to schedule an appointment as soon as possible for your hand - Billing Disposition and Condition Condition: STABLE Disposition: Home
== END 2017-11-05 20:40 | disposition home or self-care (01) ==
LOC: UCEAST 19:31
DX: S60.221A Contusion of right hand, initial encounter (principal); W23.0XXA Caught, crushed, jammed, or pinched between moving objects, initial encounter; Y93.E6 Activity, residential relocation; Y92.009 Unspecified place in unspecified non-institutional (private) residence as the place of occurrence of the external cause; K21.9 Gastro-esophageal reflux disease without esophagitis; F31.9 Bipolar disorder, unspecified; Z88.6 Allergy status to analgesic agent; F17.210 Nicotine dependence, cigarettes, uncomplicated; Z82.0 Family history of epilepsy and other diseases of the nervous system; Z81.8 Family history of other mental and behavioral disorders
CPT/HCPCS: 99202; G0463

== ENCOUNTER 2017-11-21 06:57 | Day surgery (SDC) | payer MEDICAID ==
[~2017-11-21 06:57] MED LIST: Buffered Lidocaine 0.9% SYRIN* 5 ML/SYR SYRINGE INTRADERM ONE; Dexamethasone IV* 4 MG/ML 1 ML (4 MG) IV SLOW PU ONE
[2017-11-21] MEDS ORDERED: ceFAZolin 2 GM PREMIX (*) 2 GM/50 ML BAG IVPB ONE (07:21)
[2017-11-21] MEDS ORDERED: Bupivacaine 0.5% SDV PF* 30ML VIAL ONE (08:15)
[2017-11-21] MEDS ORDERED: fentaNYL* 50 MCG/ML 2 ML VIAL (100 MCG VIAL) ONE (08:26)
[2017-11-21] MEDS ORDERED: Midazolam* 1 MG/ML 2 ML VIAL (2 MG) ONE (08:26)
[2017-11-21] MEDS ORDERED: Propofol* 10 MG/ML 20 ML BTL IV PUSH ONE (08:27)
[2017-11-21] MEDS ORDERED: Lidocaine 2% PF * 5 ML VIAL ONE (08:27)
[2017-11-21] MEDS ORDERED: Sodium Citrate/Citric Acid* 15 ML UDC ONE (08:38)
[2017-11-21] MEDS ORDERED: Ondansetron INJ* 2 MG/ML VIAL IV PRN (09:24)
[2017-11-21] MEDS ORDERED: Naloxone* 0.4 MG/ML 1 ML VIAL IV PRN (09:24)
[2017-11-21] MEDS ORDERED: fentaNYL* 50 MCG/ML 2 ML VIAL (100 MCG VIAL) IV PRN (09:24)
[2017-11-21 10:19] VITALS: BP 128/80
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
== END 2017-11-21 10:23 | disposition home or self-care (01) ==
LOC: OREAST 06:57
PROVIDERS: ATTEND Orthopaedic Surgery Hand Surgery
DX: G56.11 Other lesions of median nerve, right upper limb (principal); Z72.0 Tobacco use; K21.9 Gastro-esophageal reflux disease without esophagitis; F43.10 Post-traumatic stress disorder, unspecified; G40.89 Other seizures; R51 Headache
CPT/HCPCS: A9270-GY; J0690; J2250; J2704; J3010

== ENCOUNTER 2017-11-26 19:24 | Emergency (ER) | payer MEDICAID ==
[2017-11-26 20:01] VITALS: BP 122/78
--- NOTE | 2017-11-26 21:12 | UC ---
Skin Complaint HPI - HPI Summary HPI Summary: Patient underwent decompression of right median nerve for median nerve neuritis and probable carpal tunnel syndrome on 11/21/[address] Cramer. Patient reports he went in on 11/22/17 and saw RICHARD Barboza for increased pain and swelling. Had what sounds like a seroma drained at that time and was put on morphine for pain management. Patient states after 1 dose of morphine he felt like his throat was closing up so stopped taking it. Has been taking the oxycodone he has for chronic back pain to help with his wrist pain. Yesterday he fell and struck his wrist and also went [place] in the [place]. He is now concerned about an increase in pain. He actually reports his range of motion in the wrist and fingers has improved. He is not running fever. No drainage from the incision site. He admits he took several sutures out of the distal end of his incision site as he felt it was pulling the skin on his palm together too tightly. 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 Negative: Nausea, Difficulty Breathing, Fever, Chills, Rash, Drainage, Red Streaks - Allergy/Home Medications Allergies/Adverse Reactions: Allergies Allergy/AdvReac Type Severity Reaction Status Date / Time morphine Allergy Difficulty Verified 11/26/17 19:56 Breathing NSAIDS (Non-Steroidal Allergy Bleeding Verified 11/21/17 07:26 Anti-Inflamma peanut Allergy Hives Verified 11/21/17 07:26 peanut oil Allergy Hives Verified 11/21/17 07:26 Review of Systems Constitutional: Negative Skin: Other - SURGICAL INCISION RIGHT WRIST Respiratory: Negative Cardiovascular: Negative Gastrointestinal: Negative Musculoskeletal: Decreased ROM, Edema All Other Systems Reviewed And Are Negative: Yes PMH/Surg Hx/FS Hx/Imm Hx Neurological History: Seizures Other History Of: Negative For: HIV, Hepatitis B, Hepatitis C, Anticoagulant Therapy - Surgical History Surgical History: Yes Surgery Procedure, Year, and Place: Deviated Septum, 2012, [facility]. right wrist 2018 - Family History Known Family History: Positive: Diabetes, Seizure Disorder - Son with febrile sz , brother from sz, Other - brother drowned with a seizure disorder Negative: Cardiac Disease, Hypertension Family History: Depression - Social History Alcohol Use: None Alcohol Amount: 1 q 6 months Substance Use Type: None Substance Use Comment - Amount & Last Used: history at [place]- Smoking Status (MU): Former Smoker Type: eCigarettes Amount Used/How Often: mahsa week for a year Length of Time of Smoking/Using Tobacco: "A COUPLE YRS" Have You Smoked in the Last Year: Yes When Did the Patient Quit Smoking/Using Tobacco: quit regular cigarettes 4 years ago Household Exposure Type: Cigarettes - Immunization History Most Recent Influenza Vaccination: utd Most Recent Tetanus Shot: 2013 Most Recent Pneumonia Vaccination: Never Physical Exam Triage Information Reviewed: Yes Appearance: Well-Appearing, Well-Nourished, Pain Distress - MILD Vital Signs: Initial Vital Signs Temp 98.5 F 11/26/17 19:50 Pulse 88 11/26/17 19:50 Resp 18 11/26/17 19:50 BP 122/78 11/26/17 19:50 Pulse Ox 99 11/26/17 19:50 Vital Signs Reviewed: Yes Eyes: Positive: Conjunctiva Clear ENT: Positive: Hearing grossly normal Neck: Positive: Supple Respiratory: Positive: No respiratory distress, No accessory muscle use Cardiovascular: Positive: Pulses Normal Abdomen Description: Positive: Soft Musculoskeletal: Positive: ROM Limited @ - RIGHT WRIST Neurological: Positive: Alert Psychological: Positive: Age Appropriate Behavior Skin: Positive: Other - 10.5CM SURGICAL INCISION RIGHT WRIST VOLAR SURFACE WITH SOFT TISSUE SWELLING ALONG PROXIMAL INCISION SITE. SKIN EDGES WELL APPROXIMATED WITH ONLY 1MM GAP AT DISTAL END ALONG PALMAR CREASE. NO SURROUNDING ERYTHEMA OR DRAINAGE. Course/Dx - Course Course Of Treatment: Incision site actually looks pretty good despite his recent fall and exposure to [place] water. Spoke to Dr. Aponte with orthopedics who agreed with Xeroform dressing and recommended antibiotics be started tonight. Prescription for short course of narcotics sent in to pharmacy to last patient until he has his pain management appointment in 2 days. Discussed at length with patient the importance of following postop wound care instructions to prevent infection and loss of limb. Patient is returning to work in 2 days at his insistence. Cock-up splint provided to help provide some protection for the surgical site. Keep follow-up appointment with orthopedics in one week. - Diagnoses Provider Diagnoses: SURGICAL SITE PAIN - Physician Notification/Consults Discussed Patient Care With: Rizwana Aponte - AGREE WITH DRESSING, ABX AND KEEP ORTHO F/U Time Discussed With Above Provider: 21:30 Discharge - Sign-Out/Discharge Documenting (check all that apply): Discharge/Admit/Transfer - Discharge Plan Condition: Stable Disposition: HOME Prescriptions: Cephalexin CAP* [Keflex 500 CAP*] 1,000 mg PO BID #38 cap oxyCODONE/Acetamin 5/325 MG* [Percocet 5/325 TAB*] 1 tab PO Q6H PRN #10 tab MDD 4 PRN Reason: Pain Patient Education Materials: Surgical Site Infections (ED) Referrals: Hao Cramer MD [Medical Doctor] - 1 Week (keep your appt 12/03/17) Duran Cerna MD [Primary Care Provider] - If Needed Additional Instructions: YOUR SURGICAL SITE ACTUALLY DOES NOT LOOK TOO BAD TODAY. XEROFORM DRESSING AND KEEP YOUR ORTHO APPT NEXT WEEK. WRIST SPLINT TO HELP PROTECT IT WHILE AT WORK. TAKE THE ANTIBIOTIC TWICE DAILY FOR THE FULL COURSE. KEEP YOUR PAIN MGMT APPT IN 2 DAYS. PERCOCET 5/325 #10 GIVEN TO TIDE YOU OVER UNTIL YOUR APPT. KEEP IT CLEAN. - Billing Disposition and Condition Condition: STABLE Disposition: Home
[2017-11-26] MEDS ORDERED: HYDROcodone/ACETAMIN 5-325 MG* 1 TAB PO ONE (21:21)
[2017-11-26] MEDS ORDERED: Cephalexin CAP* 500 MG PO ONE (21:30)
== END 2017-11-26 21:41 | disposition home or self-care (01) ==
LOC: UCCORT 19:24
DX: G89.18 Other acute postprocedural pain (principal); Z88.6 Allergy status to analgesic agent; Z88.4 Allergy status to anesthetic agent; Z88.5 Allergy status to narcotic agent; Z87.891 Personal history of nicotine dependence
CPT/HCPCS: 99213; A9270-GY; G0463

== ENCOUNTER 2017-12-20 15:50 | Emergency (ER) | payer OTHER ==
[2017-12-20 16:05] VITALS: BP 120/93
[2017-12-20] MEDS ORDERED: Ondansetron ODT TAB* 4 MG PO ONE (17:01)
--- NOTE | 2017-12-20 17:14 | UC ---
UC General HPI - History of Current Complaint Chief Complaint: UCMedRefill Stated Complaint: REFILL RX Time Seen by Provider: 12/20/17 16:13 Pain Intensity: 8 - Allergy/Home Medications Allergies/Adverse Reactions: Allergies Allergy/AdvReac Type Severity Reaction Status Date / Time morphine Allergy Severe Anaphylatic Verified 12/20/17 16:06 Shock NSAIDS (Non-Steroidal Allergy Bleeding Verified 12/20/17 16:06 Anti-Inflamma peanut Allergy Hives Verified 12/20/17 16:06 peanut oil Allergy Hives Verified 12/20/17 16:06 PMH/Surg Hx/FS Hx/Imm Hx Other History Of: Negative For: HIV, Hepatitis B, Hepatitis C, Anticoagulant Therapy - Surgical History Surgical History: Yes Surgery Procedure, Year, and Place: Deviated Septum, 2011, [facility]. right wrist 2017 - Family History Known Family History: Positive: Diabetes, Seizure Disorder - Son with febrile sz , brother from sz, Other - brother drowned with a seizure disorder Negative: Cardiac Disease, Hypertension Family History: Depression - Social History Alcohol Use: None Alcohol Amount: 1 q 6 months Substance Use Type: None Substance Use Comment - Amount & Last Used: history at [place]- Smoking Status (MU): Current Some Day Smoker Type: Cigarettes, eCigarettes Amount Used/How Often: mahsa week for a year Length of Time of Smoking/Using Tobacco: "A COUPLE YRS" Have You Smoked in the Last Year: Yes When Did the Patient Quit Smoking/Using Tobacco: quit regular cigarettes 4 years ago Household Exposure Type: Cigarettes - Immunization History Most Recent Influenza Vaccination: utd Most Recent Tetanus Shot: 2014 Most Recent Pneumonia Vaccination: Never Physical Exam Vital Signs: Initial Vital Signs Temp 99 F 12/20/17 15:57 Pulse 120 12/20/17 15:57 Resp 20 12/20/17 15:57 BP 120/93 12/20/17 15:57 Pulse Ox 99 12/20/17 15:57 Discharge - Discharge Plan Condition: Stable Disposition: HOME Prescriptions: lamoTRIgine TAB(*) [LaMICtal TAB(*)] 200 mg PO BID #14 tab Ondansetron TAB* [Zofran 4 MG Tab*] 4 mg PO Q6H PRN #12 tab PRN Reason: Nausea Patient Education Materials: Opioid Withdrawal (ED), Epilepsy (DC) Referrals: Duran Cerna MD [Primary Care Provider] - Additional Instructions: CLAUDIA___[facility] [phone] FOR AN APPOINTMENT THIS WEEK CALL [facility] ON SATURDAY!!!! - Billing Disposition and Condition Condition: STABLE Disposition: Home
== END 2017-12-20 17:22 | disposition home or self-care (01) ==
LOC: UCEAST 15:50
DX: Z76.0 Encounter for issue of repeat prescription (principal); Z88.6 Allergy status to analgesic agent; Z91.010 Allergy to peanuts
CPT/HCPCS: 99212; A9270-GY; G0463

== ENCOUNTER 2017-12-25 17:26 | Emergency (ER) | payer OTHER ==
[2017-12-25 17:38] VITALS: BP 137/74
--- NOTE | 2017-12-25 18:07 | UC ---
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 - History of Current Complaint Chief Complaint: UCMedRefill Stated Complaint: MED REFILL Time Seen by Provider: 12/25/17 17:45 Hx Obtained From: Patient Onset/Duration: Gradual Onset, Still Present Timing: Constant Onset Severity: Severe Current Severity: None Pain Intensity: 0 Associated Signs & Symptoms: Positive: Back Pain - chronic - Allergy/Home Medications Allergies/Adverse Reactions: Allergies Allergy/AdvReac Type Severity Reaction Status Date / Time morphine Allergy Severe Anaphylatic Verified 12/25/17 17:40 Shock NSAIDS (Non-Steroidal Allergy Bleeding Verified 12/25/17 17:40 Anti-Inflamma peanut Allergy Hives Verified 12/25/17 17:40 peanut oil Allergy Hives Verified 12/25/17 17:40 PMH/Surg Hx/FS Hx/Imm Hx Previously Healthy: No - chronic back pain Neurological History: Seizures Psychological History: Post Traumatic Stress Disorder Other History Of: Negative For: HIV, Hepatitis B, Hepatitis C, Anticoagulant Therapy - Surgical History Surgical History: Yes Surgery Procedure, Year, and Place: Deviated Septum, 2011, [facility]. right wrist carpal tunnel release 2017 - Family History Known Family History: Positive: Diabetes, Seizure Disorder - Son with febrile sz , brother from sz, Other - brother drowned with a seizure disorder Negative: Cardiac Disease, Hypertension Family History: Depression - Social History Occupation: Employed Full-time Lives: With Family Alcohol Use: Rare Alcohol Amount: 1 q 6 months Substance Use Comment - Amount & Last Used: history at [facility]- Smoking Status (MU): Current Some Day Smoker Type: Cigarettes, eCigarettes Amount Used/How Often: mahsa week for a year Length of Time of Smoking/Using Tobacco: "A COUPLE YRS" Have You Smoked in the Last Year: Yes When Did the Patient Quit Smoking/Using Tobacco: quit regular cigarettes 4 years ago Household Exposure Type: Cigarettes - Immunization History Most Recent Influenza Vaccination: utd Most Recent Tetanus Shot: 2014 Most Recent Pneumonia Vaccination: Never Review of Systems Constitutional: Negative Skin: Negative Eyes: Negative ENT: Negative Respiratory: Negative Cardiovascular: Negative Gastrointestinal: Negative Genitourinary: Negative Motor: Negative Neurovascular: Negative Musculoskeletal: Negative Neurological: Negative Psychological: Negative Is Patient Immunocompromised?: No All Other Systems Reviewed And Are Negative: Yes Physical Exam Triage Information Reviewed: Yes Appearance: Well-Appearing, No Pain Distress, Well-Nourished Vital Signs: Initial Vital Signs Temp 99.8 F 12/25/17 17:31 Pulse 91 12/25/17 17:31 Resp 15 12/25/17 17:31 BP 137/74 12/25/17 17:31 Pulse Ox 98 12/25/17 17:31 Vital Signs Reviewed: Yes Eye Exam: Normal Eyes: Positive: Conjunctiva Clear ENT Exam: Normal ENT: Positive: Normal ENT inspection, Hearing grossly normal. Negative: Trismus , Muffled voice, Hoarse voice Dental Exam: Normal Neck exam: Normal Neck: Positive: Supple, Nontender, No Lymphadenopathy Respiratory Exam: Normal Respiratory: Positive: Chest non-tender, Lungs clear, Normal breath sounds, No respiratory distress, No accessory muscle use Cardiovascular Exam: Normal Cardiovascular: Positive: RRR, No Murmur, Pulses Normal, Brisk Capillary Refill Musculoskeletal Exam: Normal Musculoskeletal: Positive: Strength Intact, ROM Intact, No Edema Neurological Exam: Normal Neurological: Positive: Alert, Muscle Tone Normal Psychological Exam: Normal Skin Exam: Normal Course/Dx - Course Course Of Treatment: 1 additional week of Suboxone, will call [facility] and check on appointment options - Differential Dx - Multi-Symptom Provider Diagnoses: opiate abuse Discharge - Sign-Out/Discharge Documenting (check all that apply): Patient Departure - Discharge Plan Condition: Stable Disposition: HOME Patient Education Materials: Opioid Dependence (ED), Opioid Withdrawal (ED) Referrals: Duran Cerna MD [Primary Care Provider] - 1 Week Additional Instructions: Per institutional requirements, I have reviewed the chart, however, I was not consulted specifically or made aware of this patient by the above midlevel provider. I did not personally evaluate, interact with , or disposition this patient. please note myshihf ended at 1800 on 12/25/17 - Billing Disposition and Condition Condition: STABLE Disposition: Home
== END 2017-12-25 18:19 | disposition home or self-care (01) ==
LOC: UCEAST 17:26
DX: F11.10 Opioid abuse, uncomplicated (principal); G89.29 Other chronic pain; M54.9 Dorsalgia, unspecified; Z88.6 Allergy status to analgesic agent; Z88.5 Allergy status to narcotic agent; Z91.010 Allergy to peanuts; Z72.0 Tobacco use
CPT/HCPCS: 99212; G0463

== ENCOUNTER 2017-12-27 21:30 | Emergency (ER) | payer OTHER ==
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
[2017-12-27] MEDS ORDERED: NS 0.9% 1000 ML* 1,000 ML IV ONE (21:56)
[2017-12-27 22:19] LABS: ABS Basophils 0.1 10^3/ul (0-0.2); ABS Eosinophils 0.1 10^3/ul (0-0.6); ABS Lymphocytes 2.5 10^3/ul (1.0-4.8); ABS Monocytes 0.6 10^3/ul (0-0.8); ABS Neutrophils 6.5 10^3/ul (1.5-7.7); ABS Nucleated RBC 0 10^3/ul; Eosinophil % 0.6 % (0-6); Hematocrit 40 % (42-52); Hemoglobin 13.9 g/dl (14.0-18.0); Lymphocyte % 25.6 % (25-47); Mean Corpuscular HGB Conc 35 g/dl (31-36); Mean Corpuscular Hemoglobin 30 pg (27-31); Mean Corpuscular Volume 87 fL (80-94); Mean Platelet Volume 8.5 um3 (7.4-10.4); Nucleated Red Blood Cells % 0.1; Platelet Count 252 10^3/ul (150-450); Red Cell Distribution Width 13 % (10.5-15); White Blood Count 9.8 10^3/ul (3.5-10.8)
[2017-12-27 22:38] LABS: EGFR Non-African American 127.3 (>60)
[2017-12-28 00:21] VITALS: BP 114/61
== END 2017-12-28 00:19 | disposition home or self-care (01) ==
LOC: ED 21:30
DX: R56.9 Unspecified convulsions (principal); Z72.0 Tobacco use
CPT/HCPCS: 36415; 80053; 80175; 82550; 83605; 83735; 84146; 85025; 99283

== ENCOUNTER 2018-01-27 21:53 | Emergency (ER) | payer OTHER ==
--- NOTE | 2018-01-28 00:26 | ED ---
Laceration/Wound HPI - HPI Summary HPI Summary: 33 year male presents with right arm laceration today. He states he dropped a piece of sheet metal on his forearm. Denies any foreign body in the wound. His last tetanus was 4 years ago. No active bleeding. No numbness or tingling. Full range of motion of hand. He states he got scratch by a cat near his laceration earlier today. Has no medical conditions besides seizures. 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 - History of Current Complaint Stated Complaint: RT ARM LAC Time Seen by Provider: 01/27/18 23:56 Pain Intensity: 7 - Allergy/Home Medications Allergies/Adverse Reactions: Allergies Allergy/AdvReac Type Severity Reaction Status Date / Time morphine Allergy Severe Anaphylatic Verified 01/27/18 23:51 Shock NSAIDS (Non-Steroidal Allergy Bleeding Verified 01/27/18 23:51 Anti-Inflamma peanut Allergy Hives Verified 01/27/18 23:51 peanut oil Allergy Hives Verified 01/27/18 23:51 PMH/Surg Hx/FS Hx/Imm Hx Endocrine/Hematology History: Denies: Hx Anticoagulant Therapy, Hx Diabetes, Hx Systemic Lupus Erythematosus, Hx Thyroid Disease, Hx Anemia, Other Endocrine/Hematological Disorders Cardiovascular History: Reports: Hx Syncope - many times Denies: Hx Aneurysm, Hx Cardiac Arrest, Hx Congestive Heart Failure, Hx Deep Vein Thrombosis, Hx Hypertension, Hx Myocardial Infarction, Hx Pacemaker/ICD, Hx Peripheral Vascular Disease, Other Cardiovascular Problems/Disorders Respiratory History: Denies: Hx Asthma, Hx Chronic Obstructive Pulmonary Disease (COPD), Hx Lung Cancer, Other Respiratory Problems/Disorders GI History: Reports: Hx Gastroesophageal Reflux Disease, Hx Gastrointestinal Bleed, Hx Ulcer Denies: Hx Gall Bladder Disease, Hx Urosepsis, Other GI Disorders History: Denies: Hx Kidney Stones, Hx Renal Disease, Other Problems/Disorders Musculoskeletal History: Reports: Hx Back Problems - Fell off a ladder, herniated discs per pt Denies: Hx Arthritis, Hx Osteoporosis, Other Musculoskeletal History Sensory History: Reports: Hx Contacts or Glasses - glasses Denies: Hx Cataracts, Hx Glaucoma, Hx Hearing Aid, Other Sensory Impairments Opthamlomology History: Reports: Hx Contacts or Glasses - glasses Denies: Hx Cataracts, Hx Glaucoma, Other Sensory Impairments Neurological History: Reports: Hx Headaches, Hx Seizures - followed by Dr. Umana , last seizure 09/2017, Other Neuro Impairments/Disorders - History of TBI in 2013. 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 Denies: Hx Dementia Psychiatric History: Reports: Hx Anxiety - no meds, Hx Depression, Hx Community Mental Health Tx, Hx of Violent Episodes Against Others Denies: Hx Eating Disorder, Hx Panic Disorder, Hx Inpatient Treatment, Hx Schizophrenia, Hx Bipolar Disorder, Hx Suicide Attempt, Hx Substance Abuse, Other Psychiatric Issues/Disorders - Cancer History Hx Hematologic Symptoms: No Hx Chemotherapy: No - Surgical History Surgery Procedure, Year, and Place: Deviated Septum, 2011, [facility]. right wrist carpal tunnel release 2018 Hx Anesthesia Reactions: No - Immunization History Date of Tetanus Vaccine: 2015 Date of Influenza Vaccine: 2012 Infectious Disease History: No Infectious Disease History: Denies: Hx Clostridium Difficile, Hx Hepatitis, Hx Human Immunodeficiency Virus (HIV), Hx of Known/Suspected MRSA, Hx Shingles, Hx Tuberculosis, Hx Known/ Suspected VRE, Hx Known/Suspected VRSA, History Other Infectious Disease, Traveled Outside the [place] in Last 30 Days - Family History Known Family History: Positive: Diabetes, Seizure Disorder - Son with febrile sz , brother from sz, Other - brother drowned with a seizure disorder Negative: Cardiac Disease, Hypertension Family History: Depression - Social History Alcohol Use: Rare Alcohol Amount: 1 q 6 months Hx Substance Use: No Substance Use Type: Reports: None Substance Use Comment - Amount & Last Used: history at [facility]- Tobacco Use: Yes Smoking Status (MU): Light Every Day Tobacco Smoker Type: Cigarettes, eCigarettes Amount Used/How Often: mahsa week for a year Length of Time of Smoking/Using Tobacco: "A COUPLE YRS" Have You Smoked in the Last Year: Yes Review of Systems Negative: Fever Negative: Chest Pain Negative: Shortness Of Breath Positive: Other - right forearm lac All Other Systems Reviewed And Are Negative: Yes Physical Exam Triage Information Reviewed: Yes Vital Signs On Initial Exam: Initial Vitals Temp Pulse Resp BP Pulse Ox 99.3 F 90 16 134/96 98 01/27/18 21:57 01/27/18 21:57 01/27/18 21:57 01/27/18 21:57 01/27/18 21:57 Vital Signs Reviewed: Yes Appearance: Positive: Well-Appearing Skin: Positive: Warm, Dry, Other - 4cm by 1/2cm laceration to right dorsum of forearm, cat scratch present on dorsum of right hand Head/Face: Positive: Normal Head/Face Inspection Eyes: Positive: Normal, Conjunctiva Clear ENT: Positive: Pharynx normal Respiratory/Lung Sounds: Positive: Clear to Auscultation, Breath Sounds Present Cardiovascular: Positive: Normal, RRR Musculoskeletal: Positive: Strength/ROM Intact - right arm, Other - good Pulses , capillary refill less than 2 seconds, sensation grossly intact Neurological: Positive: Normal Psychiatric: Positive: Normal Procedures - Laceration/Wound Repair 1 Location: Other - right forearm Description: Linear Anesthesia: Local, 1.0%, Epi Length, Depth and Shape: 4cm by 1/2cm Irrigated w/ Saline (ccs): 300 Laceration/Wound Explored: no foreign body removed Closure: Rell #__ - 5 Diagnostics - Vital Signs Vital Signs Temp Pulse Resp BP Pulse Ox 01/27/18 21:57 99.3 F 90 16 134/96 98 - Laboratory Lab Statement: Any lab studies that have been ordered have been reviewed, and results considered in the medical decision making process. Laceration Repair Course/Dx - Course Course Of Treatment: 33 year male presents with right arm laceration today. He states he dropped a piece of sheet metal on his forearm. Denies any foreign body in the wound. His last tetanus was 4 years ago. No active bleeding. No numbness or tingling. Full range of motion of hand. He states he got scratch by a cat near his laceration earlier today. Has no medical conditions besides seizures. 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 On exam his 4 cm by 1/ 2cm laceration to right forearm on the dorsum of forearm. Neurovascular intact. Clean area and placed 5 rell. Patient also scratches to right posterior hand from a cat today. We'll place on Augmentin due to his cat scratches. Patient understands agrees with plan. - Differential Dx Differental Diagnoses: Abrasion, Avulsion, Laceration - Clinical Impression Provider Diagnoses: Laceration of right forearm, Cat scratch Discharge - Sign-Out/Discharge Documenting (check all that apply): Patient Departure - Discharge Plan Condition: Good Disposition: HOME Prescriptions: Amoxicillin/Clavulanate TAB* [Augmentin TAB 875*] 875 mg PO BID #9 tab Patient Education Materials: [facility] (ED) Referrals: Duran Cerna MD [Primary Care Provider] - Additional Instructions: take Augmentin twice a day for 5 days rell removed in 7-10 days at ED, urgent care or primary do not scrub area keep covered at work take tyenlol every 6 hours as needed for pain Return to ED if develop any new or worsening symptoms - Billing Disposition and Condition Condition: GOOD Disposition: Home
[2018-01-28] MEDS ORDERED: Amoxicillin/Clavulanate TAB* 875 MG PO ONE (00:27)
[2018-01-28 01:08] VITALS: BP 133/84
== END 2018-01-28 01:07 | disposition home or self-care (01) ==
LOC: ED 21:53
DX: S61.511A Laceration without foreign body of right wrist, initial encounter (principal); W55.03XA Scratched by cat, initial encounter; Y92.9 Unspecified place or not applicable; F17.210 Nicotine dependence, cigarettes, uncomplicated
CPT/HCPCS: 12002; 99281